=== PATIENT | male | born 1935 | race Caucasian/White ===

== ENCOUNTER 2019-07-12 23:44 | Inpatient (IN) | payer MEDICARE, BC ==
[2019-07-13 00:43] LABS: #Eosinphils 0.2 thou/uL (0.0-0.7); #Lymphocytes 2.9 thou/uL (1.20-3.40); #Monocytes 1.6 thou/uL (0.11-0.59); #Neutrophils 11.5 thou/uL (1.40-6.50); %Basophils 0.3 % (0.0-1.0); %Lymphocytes 17.7 % (21.0-51.0); %Monocytes 9.9 % (0.0-10.0); Mean Corpuscular HGB CONC 31.9 g/dL (32.0-36.0); Mean Corpuscular Hemoglobin 26.9 pg (27.0-31.0); Mean Corpuscular Volume 84.3 fL (78.0-98.0); Mean Platelet Volume 6.9 fL (7.4-10.4); Platelet Count 377 thou/uL (130-400); RBC Distribution Width 15.2 % (11.5-14.5); Red Blood Cell (RBC) Count 2.98 mill/uL (4.70-6.10); White Blood Cell (WBC) Count 16.2 thou/uL (4.8-10.8)
[2019-07-13] MEDS ORDERED: Sodium Chloride 0.9% (PF) 10 ML VIAL FS PRN ×2 (03:05→05:26)
[2019-07-13] MEDS ORDERED: Dextrose 5 % And 0.9 % NaCl 1,000 ML IV SCH (03:15)
[2019-07-13] MEDS ORDERED: hydrALAZINE 20 MG/ML VIAL SLOW IVP PRN (05:15)
[2019-07-13] MEDS ORDERED: Ondansetron ODT 4 MG TAB PO PRN (05:15)
[2019-07-13] MEDS ORDERED: Ondansetron PF 4 MG/2 ML Vial IVP PRN (05:15)
[2019-07-13] MEDS: Sodium Chloride 0.9% 1,000 ML IV SCH ×2 (06:13→19:58)
[2019-07-13] MEDS ORDERED: FLU VACC TS2019-20(65YR UP)/PF 180 MCG/0.5 ML SYRINGE IM ONE (06:15)
[2019-07-13] MEDS ORDERED: Prevnar 13-Val Conj/PF 0.5 ML SYRINGE IM ONE (06:15)
--- NOTE | 2019-07-13 06:41 | HP ---
PRIMARY CARE PROVIDER: Dr. Yoav Moyer. CHIEF COMPLAINT: Blood per rectum. HISTORY OF PRESENT ILLNESS: This is an 84-year-old male, who presents to [facility] Emergency Department in transfer from [facility] in [place], [place], where the patient initially presented for bright red blood per rectum. The patient apparently had two episodes of passing bright red blood with associated hypotension. History is obtained after discussions with the emergency room attending as well as review of the electronic medical record from [facility] in [place], [place], in addition to partial history from the patient. Overall, the patient is a poor historian and unable to provide a coherent history. The patient was apparently noted with an initial hemoglobin in the 7.5 range, typed and crossed for 1 unit of packed red blood cells, transfused prior to evaluation at [facility]. The patient received an additional unit of packed red blood cells after arrival to the emergency room. The patient also received aggressive IV fluid hydration in addition to IV Protonix 80 mg x1 dose. No reported history of chronic anticoagulation or chronic aspirin therapy. The patient did undergo CT imaging of the abdomen and pelvis showing questionable soft tissue mass at the splenic flexure concerning for tumor. PAST MEDICAL HISTORY: 1. Hypertension. 2. Gastroesophageal reflux disease. 3. Gout. 4. Hyperlipidemia. 5. History of Ashley-Palmer syndrome. 6. Osteoarthritis. 7. Remote history of pneumonia. 8. CVA with residual left hemiparesis. PAST SURGICAL HISTORY: 1. Status post cataract extraction. 2. Status post EGD x2. 3. Status post inguinal hernia repair on the right. CURRENT MEDICATIONS: 1. Donepezil 10 mg p.o. nightly. 2. Lisinopril/hydrochlorothiazide 10/12.5 mg 1 tablet p.o. daily. 3. Ferrous sulfate 325 mg p.o. b.i.d. 4. Protonix 40 mg p.o. daily. 5. Simvastatin 40 mg p.o. daily. ALLERGIES: AMOXICILLIN AND BACTRIM. FAMILY HISTORY: Positive for diabetes in the patient's sister and brother. Positive for coronary artery disease in the patient's brother. SOCIAL HISTORY: The patient resides in [place], [place]. Former tobacco use, none currently. No alcohol or illicit drug use. Lives with his . REVIEW OF SYSTEMS: Unobtainable due to patient's advanced dementia. PHYSICAL EXAMINATION: VITAL SIGNS: Currently, blood pressure 98/57, pulse 98, respiratory rate is 20, temperature 98.5 degrees Fahrenheit, and O2 saturation 100% on room air. GENERAL APPEARANCE: This is an 84-year-old male, alert, responsive, in no acute distress. HEENT: Pupils are equal, round, reactive to light and accommodation. Extraocular muscles are intact. No scleral icterus. No conjunctival injection. Nares patent. OP is clear. Teeth in fair repair. NECK: Supple. No cervical adenopathy. No thyromegaly. No carotid bruits. No JVD appreciated. Cervical spine with full active and passive range of motion. No meningeal signs noted. CHEST: Lungs are clear to auscultation bilaterally. CARDIOVASCULAR: S1, S2 with tachycardia. ABDOMEN: Rounded, soft, nontender, and nondistended. Bowel sounds are positive in all 4 quadrants. No hepatosplenomegaly. No abdominal bruits. No rebound or guarding appreciated. EXTREMITIES: Warm and dry with fair turgor. No clubbing, cyanosis, or asymmetric edema appreciated. Pulses palpable distally at the dorsalis pedis, posterior tibial, and popliteal arteries bilaterally. Capillary refill less than 2 seconds. NEUROLOGIC: Left hemiparesis with limited movement voluntarily. Positive dysarthria. Alert and oriented x1. PERTINENT LABORATORY AND X-RAY FINDINGS: Sodium is 136, potassium 4.9, chloride 102, CO2 of 21, BUN and creatinine unavailable. CBC showed a white blood cell count of 14.9, hemoglobin 7.5, hematocrit 24, platelet count 394. CT of the abdomen and pelvis dated 07/12/2019, showed hiatal hernia with prostatomegaly. Focal area of concentric soft tissue thickening involving the splenic flexure. EKG dated 07/12/2019, by my interpretation shows sinus rhythm with heart rates in the 80s. Normal R-wave progression noted in the precordial leads. Normal axis. No acute ST-T wave changes appreciated. ASSESSMENT AND PLAN: 1. Lower gastrointestinal bleed. The patient will be admitted to the Critical Care Unit. We will continue IV fluid hydration with normal saline at 100 mL/h. Consult GI Service in the a.m. for any further recommendations and potential endoscopy. Avoid anticoagulation and NSAIDs. Serial H and H monitoring. 2. Symptomatic anemia secondary to #1. Status post 2 units of packed red blood cells. Continue monitoring, serial H and H. GI consult pending for potential endoscopy. Continue Protonix 40 mg IV b.i.d. 3. Hypotension. Suspect secondarily to dehydration and acute blood loss. We will continue IV fluid hydration. Serial H and H monitoring and transfuse as clinically necessary. Hold all blood pressure medications. 4. Dementia. Appears advanced. Continue supportive management. We will need discussions with family regarding ongoing goals of care and safety of returning home. 5. Prophylaxis. SCDs while in bed. Protonix 40 mg IV b.i.d. PT and OT evaluation for functional assessment. CODE STATUS: Full. Surrogate medical decision maker is the patient's spouse. Job ID: [id number]
[2019-07-13 06:52] LABS: Band 2 % (5-11); Hemoglobin 7.9 g/dL (14.0-18.0); Hypochromia SLIGHT = 6-15 cells (100X) (0-5/hpf); Lymphocytes 5 % (21-51); MDiff Complete? YES; Mean Corpuscular HGB CONC 32.1 g/dL (32.0-36.0); Mean Corpuscular Hemoglobin 26.7 pg (27.0-31.0); Mean Corpuscular Volume 83.1 fL (78.0-98.0); Mean Platelet Volume 6.8 fL (7.4-10.4); Monocytes 6 % (0-10); Neutrophil 87 % (42-75); Platelet Count 338 thou/uL (130-400); Platelet Morphology Comment Appears Adequate; Red Blood Cell (RBC) Count 2.97 mill/uL (4.70-6.10); White Blood Cell (WBC) Count 18.9 thou/uL (4.8-10.8)
[2019-07-13 06:58] LABS: Anion Gap 11 mmol/L (10-20); BUN (Urea Nitrogen) 39 mg/dL (8.4-25.7); Calc. Creatinine Clearance 49 mL/min (70-130); Calcium 7.6 mg/dL (7.8-10.44); Carbon Dioxide 19 mmol/L (23-31); Chloride 111 mmol/L (98-107); Estimated GFR-MDRD 61; Glucose 218 mg/dL (83-110); Potassium 4.2 mmol/L (3.5-5.1); Sodium 137 mmol/L (136-145)
[2019-07-13] MEDS: Pantoprazole 40 MG VIAL IVP SCH ×2 (08:12→21:05)
[2019-07-13] MEDS ORDERED: Pantoprazole 40 MG VIAL IVP SCH (09:00)
--- NOTE | 2019-07-13 10:32 | CON ---
DATE OF CONSULTATION: 07/13/2019 CONSULTING PHYSICIAN: Katerineist . REASON FOR CONSULTATION: ICU admission. HISTORY OF PRESENT ILLNESS: The patient is an 84-year-old male who came in the hospital with bright red blood per rectum and hypotension. He has been appropriately fluid resuscitated and transfused. He is currently in the ICU for close monitoring. He cannot give me much in the way of history because of severe dementia. PAST MEDICAL HISTORY: 1. Hypertension. 2. Gastroesophageal reflux. 3. Dementia. 4. Gout. 5. Hyperlipidemia. 6. History of Ashley-Palmer syndrome. 7. Osteoarthritis. 8. Pneumonia. 9. Stroke. PAST SURGICAL HISTORY: 1. Cataract surgery. 2. EGD. 3. Inguinal hernia repair. MEDICATIONS: 1. Donepezil 10 mg daily. 2. Lisinopril/hydrochlorothiazide 10/12.5 one daily. 3. Iron sulfate 325 mg b.i.d. 4. Protonix 40 mg daily. 5. Simvastatin 40 mg daily. ALLERGIES: AMOXICILLIN, BACTRIM. FAMILY MEDICAL HISTORY: Remarkable for coronary artery disease. SOCIAL HISTORY: Formerly smoke. Does not consume alcohol. Lives with his . REVIEW OF SYSTEMS: Cannot be obtained secondary to his dementia. PHYSICAL EXAMINATION: VITAL SIGNS: Temperature 98.3, pulse 109, blood pressure 109/66, respiratory rate 100. He is awake and in no distress. He is sitting up in a chair. HEENT: Unremarkable. NECK: No adenopathy or JVD. CHEST: Clear to auscultation. CARDIAC: S1, S2 regular without murmur. ABDOMEN: Soft, nontender to palpation. EXTREMITIES: No clubbing, cyanosis, or edema. LABORATORY DATA: 1. White blood cell count 18.9, hematocrit 24.6, and platelet count 338. Sodium 137, potassium 4.2, chloride 111, CO2 of 19, BUN 39, creatinine 1.1, glucose 219. ASSESSMENT: 1. Presumed lower gastrointestinal bleeding. 2. Mild prerenal azotemia, likely secondary to gastrointestinal bleeding. PLAN: 1. Continue to monitor his H and H closely. 2. GI has been consulted. 3. The patient scheduled Protonix. 4. Available as needed. Job ID: [id number]
--- NOTE | 2019-07-13 11:51 | CON ---
DATE OF CONSULTATION: REASON FOR CONSULTATION: GI hemorrhage. HISTORY OF PRESENT ILLNESS: History comes from talking with the family and reviewing the chart as he has advanced dementia. Mr. Vieira is an 84-year-old male, who was brought to the hospital in [place] by his family for rectal bleeding yesterday that started yesterday acutely. His notes that prior to that, he was having some low-grade fevers to 101 to 102. Apparently, in February of this year, there was something similar happened, and he was in the hospital at [facility] [place] [facility], but she is not sure what was found. He was mildly tachycardic in [place] and received a unit of blood. He was transferred here and received a unit of blood as well. It was documented in the emergency room in [place] that the blood was very bright red. His hemoglobin on presentation there was 7.5. There was a CAT scan that showed a "focal area of concentric soft tissue thickening involving the splenic flexure". PAST MEDICAL HISTORY: Hypertension, reflux, gout, and hyperlipidemia. He has a history of "prior Ashley-Palmer syndrome", osteoarthritis, remote history of pneumonia, history of CVA with residual left hemiparesis, and history of this bleeding this past year in the summer time, but it is unclear what was done then. He has dementia as well. PAST SURGICAL HISTORY: Cataract extraction, prior EGDs, previous inguinal hernia repair. The and the daughters are unsure if he has had a previous colonoscopy. MEDICATIONS: Medications at home: 1. Aricept. 2. Ferrous sulfate. 3. Lisinopril. 4. Pantoprazole. 5. Simvastatin. Medications here: 1. Tylenol. 2. Apresoline. 3. Zofran. 4. Protonix. 5. Normal saline 100 an hour. ALLERGIES: 1. AMOXICILLIN. 2. BACTRIM. FAMILY HISTORY: Noncontributory. SOCIAL HISTORY: The patient does not smoke, drink, or use drugs. Lives with his family. REVIEW OF SYSTEMS: Unable to obtain as the patient has advanced dementia. PHYSICAL EXAMINATION: VITAL SIGNS: Blood pressure 128/66 with a pulse of 116, temperature 98. GENERAL: He is pale. He seems comfortable, but does not communicate. HEENT: His oropharynx, no lesions. NECK: Supple. No adenopathy. LUNGS: Clear. HEART: Regular rate and rhythm without clicks or murmurs. ABDOMEN: Soft. It is nontender. There is no rebound. There is no guarding. There are no bowel sounds. RECTAL: Reveals maroon to red blood, but no clot in the rectal vault. There is no melena present. LABORATORY DATA: Admission labs as documented in the HPI: His hemoglobin was 8 at midnight here. He was given a unit of blood. His hemoglobin is 7.9 at 0620 hours, platelet count 338. White count 18.9; 16.2 on 07/13. BMP was noted for BUN of 39, creatinine of 1.14, chloride 111, bicarb 19, sodium 137, potassium 4.2. ASSESSMENT: 1. Gastrointestinal hemorrhage, likely lower, diverticular would be high on the list of differential diagnosis. There is a CAT scan that shows questionable circumferential soft tissue thickening in the splenic flexure region. It could be ischemic. It could be ulcer. It could be malignancy. Malignancy usually does not bleed like this. The patient does have a remote history of Ashley-Palmer tear, but there are no signs of upper gastrointestinal bleeding or hematemesis at this time. 2. Acute hemorrhage. RECOMMENDATIONS: 1. Resuscitate with transfusion. 2. Stat tagged red blood cell scan. 3. I talked with the patient's family regarding DNR status, and they stated he is going to be DNR. Job ID: [id number]
--- NOTE | 2019-07-13 15:00 | PDOC.HOSPP ---
- Subjective Encounter Date: 07/13/19 Encounter Time: 10:50 Subjective: Sick looking. - Objective Vital Signs & Weight: Vital Signs (12 hours) Temp Pulse Pulse BP BP Pulse Ox Pulse Ox 07/13/19 14:32 98.7 F 07/13/19 13:00 98.7 F 07/13/19 12:00 98.5 F 07/13/19 11:00 98.6 F 07/13/19 09:25 111 H 119 H 124/77 136/76 96 07/13/19 07:42 100 07/13/19 07:00 98.3 F 07/13/19 04:00 97.6 F 07/13/19 03:08 100 07/13/19 03:00 98.2 F Pulse Ox 07/13/19 14:32 07/13/19 13:00 07/13/19 12:00 07/13/19 11:00 07/13/19 09:25 98 07/13/19 07:42 07/13/19 07:00 07/13/19 04:00 07/13/19 03:08 07/13/19 03:00 Weight Weight 159 lb 2.78 oz Most Recent Monitor Data Heart Rate from ECG 95 NIBP 87/61 NIBP BP-Mean 69 Respiration from ECG 15 SpO2 100 I&O: 07/12/19 07/13/19 07/14/19 06:59 06:59 06:59 Intake Total 360 625 Output Total 655 935 Balance -295 -310 Result Diagrams: 07/13/19 06:20 07/13/19 06:20 Hospitalist ROS - Medication Medications: Active Medications Generic Name Dose Route Start Last Admin Trade Name Freq PRN Reason Stop Dose Admin Sodium Chloride 1,000 mls @ 100 mls/hr 07/13/19 05:15 07/13/19 06:13 Normal Saline 0.9% IV 1,000 mls .Q10H GEORGETTE Administration Pantoprazole Sodium 40 mg 07/13/19 09:00 07/13/19 08:12 Protonix IVP 40 mg Q12HR GEORGETTE Administration - Exam General Appearance: ill appearing. negative: awake alert Neck: no JVD Heart: RRR Respiratory: CTAB Gastrointestinal: soft Extremities: no edema Neurological: no weakness Hosp A/P (1) GI bleeding Code(s): K92.2 - GASTROINTESTINAL HEMORRHAGE, UNSPECIFIED Status: Acute (2) Acute blood loss anemia Code(s): D62 - ACUTE POSTHEMORRHAGIC ANEMIA Status: Acute (3) Acute blood loss anemia Code(s): D62 - ACUTE POSTHEMORRHAGIC ANEMIA Status: Acute (4) Dementia Code(s): F03.90 - UNSPECIFIED DEMENTIA WITHOUT BEHAVIORAL DISTURBANCE Status: Acute (5) Hypotension Status: Acute - Plan Seen by surgery.. GI bleeding most likely from diverticular diseas.. For blood trasfusion.. Currently DNR.
--- NOTE | 2019-07-13 17:54 | NM ---
Nuclear medicine GI bleeding scan: DATE: 07/13/2019 HISTORY: 84-year-old male with acute GI bleeding. TECHNIQUE: IV injection of 29.6 mCi of technetium 99m-tagged erythrocytes. Anterior dynamic scintigraphy of abdomen and pelvis for 93 minutes. FINDINGS: There is no evidence of active GI bleeding. IMPRESSION: Negative.
[2019-07-14 00:35] LABS: Hemoglobin 8.1 g/dL (14.0-18.0); Platelet Count 269 thou/uL (130-400)
[2019-07-14 04:09] LABS: Band 1 % (5-11); Hemoglobin 8.3 g/dL (14.0-18.0); Lymphocytes 9 % (21-51); MDiff Complete? YES; Mean Corpuscular HGB CONC 33.9 g/dL (32.0-36.0); Mean Corpuscular Hemoglobin 28.6 pg (27.0-31.0); Mean Corpuscular Volume 84.5 fL (78.0-98.0); Monocytes 7 % (0-10); Neutrophil 83 % (42-75); Platelet Count 275 thou/uL (130-400); Platelet Morphology Comment Appears Adequate; Red Blood Cell (RBC) Count 2.89 mill/uL (4.70-6.10); White Blood Cell (WBC) Count 14.5 thou/uL (4.8-10.8)
[2019-07-14 04:20] LABS: Anion Gap 10 mmol/L (10-20); BUN (Urea Nitrogen) 35 mg/dL (8.4-25.7); Calc. Creatinine Clearance 53 mL/min (70-130); Calcium 7.9 mg/dL (7.8-10.44); Carbon Dioxide 20 mmol/L (23-31); Chloride 116 mmol/L (98-107); Estimated GFR-MDRD 67; Glucose 137 mg/dL (83-110); Sodium 142 mmol/L (136-145)
[2019-07-14] MEDS: Sodium Chloride 0.9% 1,000 ML IV SCH ×3 (05:37→16:18)
[2019-07-14] MEDS: Pantoprazole 40 MG VIAL IVP SCH ×2 (08:20→19:43)
--- NOTE | 2019-07-14 11:01 | PRG ---
DATE OF SERVICE: 07/14/2019 SUBJECTIVE: Mr. Vieira had no bleeding overnight. His tagged red blood cell scan was negative yesterday afternoon. He has received a total of 4 units of blood now. OBJECTIVE: VITAL SIGNS: Temperature is 98.6, pulse 84, and blood pressure 112/70. GENERAL: He is demented. He seems pleasant and not in any distress. LABORATORY DATA: White count 14.5, hemoglobin 8.3, and platelet count 275. Sodium 142, potassium 4, and BUN and creatinine 35 and 1.05. ASSESSMENT: Gastrointestinal bleed of unclear etiology. The character of it would indicate probably diverticular bleeding. He did have a CAT scan at outside facility, it was concerning for a circumferential lesion in the splenic flexure. He has no tenderness in this area with his elevated white count. It is always possible that this is an area of ischemia from bleeding hypotension. He has had previous esophagogastroduodenoscopies several years ago with a history of possibly upper gastrointestinal bleed at that time or Ashley-Palmer tear, but the bleeding this time has not been characteristic of that. PLAN: He otherwise seems stable. We will place him on a liquid diet and decrease his IV fluids and plan for EGD and colonoscopy tomorrow as long as the family is agreeable to that. In light of his advanced age and dementia, if they want to continue with more palliative care, we can do that, but based on our conversation yesterday and I think they are ready to move to palliative care. I did try to call the patient's daughter today, but the phone is busy. Job ID: [id number]
--- NOTE | 2019-07-14 11:12 | PDOC.HOSPP ---
- Subjective Encounter Date: 07/14/19 Encounter Time: 09:30 Subjective: Comfortable. Sitting up on bed edge with PT. Expresses no complaint. - Objective Vital Signs & Weight: Vital Signs (12 hours) Temp Pulse Ox 07/14/19 07:49 100 07/14/19 07:45 100 07/14/19 07:00 98.6 F 07/14/19 04:00 98.7 F 07/14/19 03:55 95 07/14/19 00:00 98.7 F Weight Weight 163 lb 12.855 oz Most Recent Monitor Data Heart Rate from ECG 89 NIBP 149/72 NIBP BP-Mean 97 Respiration from ECG 19 SpO2 100 I&O: 07/13/19 07/14/19 07/15/19 06:59 06:59 06:59 Intake Total 360 3042 Output Total 655 2805 655 Balance -295 237 -655 Result Diagrams: 07/14/19 03:14 07/14/19 03:14 Hospitalist ROS - Medication Medications: Active Medications Generic Name Dose Route Start Last Admin Trade Name Freq PRN Reason Stop Dose Admin Pantoprazole Sodium 40 mg 07/13/19 09:00 07/14/19 08:20 Protonix IVP 40 mg Q12HR GEORGETTE Administration Sodium Chloride 10 ml 07/13/19 05:26 07/13/19 21:05 Normal Saline Pf FS 10 ml PRN PRN Administration RECONSTITUTION - Exam Neck: no JVD Heart: RRR Respiratory: CTAB Gastrointestinal: soft Extremities: no edema Neurological: no weakness Hosp A/P (1) GI bleeding Code(s): K92.2 - GASTROINTESTINAL HEMORRHAGE, UNSPECIFIED Status: Acute (2) Acute blood loss anemia Code(s): D62 - ACUTE POSTHEMORRHAGIC ANEMIA Status: Acute Plan: s/p transfusion.. F/U hb/hct (3) Dementia Code(s): F03.90 - UNSPECIFIED DEMENTIA WITHOUT BEHAVIORAL DISTURBANCE Status: Acute (4) Hypotension Status: Acute Plan: resolved.. - Plan GI bleeding most likely from diverticular diseas.. f/u hb/hct... Overall condition is better Currently DNR.
[2019-07-14] MEDS ORDERED: GoLYTELY 4,000 ml Bottle PO SCH (15:00)
[2019-07-14] MEDS: Acetaminophen 500 MG TAB PO PRN (16:09)
[2019-07-15 05:45] LABS: #Eosinphils 0.1 thou/uL (0.0-0.7); #Lymphocytes 1.4 thou/uL (1.20-3.40); #Monocytes 1.4 thou/uL (0.11-0.59); #Neutrophils 12.6 thou/uL (1.40-6.50); %Basophils 0.2 % (0.0-1.0); %Eosinophils 0.6 % (0.0-10.0); %Monocytes 8.8 % (0.0-10.0); %Neutrophils 81.3 % (42.0-75.0); Hemoglobin 7.6 g/dL (14.0-18.0); Mean Corpuscular Hemoglobin 28.6 pg (27.0-31.0); Mean Corpuscular Volume 84.1 fL (78.0-98.0); Mean Platelet Volume 6.8 fL (7.4-10.4); Platelet Count 255 thou/uL (130-400); RBC Distribution Width 15.2 % (11.5-14.5); Red Blood Cell (RBC) Count 2.66 mill/uL (4.70-6.10); White Blood Cell (WBC) Count 15.5 thou/uL (4.8-10.8)
[2019-07-15] MEDS: Sodium Chloride 0.9% 1,000 ML IV SCH (05:50)
[2019-07-15 06:06] LABS: Anion Gap 9 mmol/L (10-20); BUN (Urea Nitrogen) 18 mg/dL (8.4-25.7); Calc. Creatinine Clearance 61 mL/min (70-130); Calcium 8.2 mg/dL (7.8-10.44); Carbon Dioxide 26 mmol/L (23-31); Chloride 113 mmol/L (98-107); Estimated GFR-MDRD 76; Glucose 117 mg/dL (83-110); Potassium 3.6 mmol/L (3.5-5.1); Sodium 144 mmol/L (136-145)
[2019-07-15] MEDS: Pantoprazole 40 MG VIAL IVP SCH ×2 (08:03→20:13)
[2019-07-15] MEDS ORDERED: PROPOFOL 200 MG/20 ML VIAL ONE (10:56)
--- NOTE | 2019-07-15 13:20 | PRG ---
DATE OF SERVICE: 07/15/2019 SUBJECTIVE: Nurse reports Mr. Vieira finishes prep, has only had 2 bowel movements, it is still dark. PHYSICAL EXAMINATION: VITAL SIGNS: Temperature is 99.6, pulse 87, and blood pressure 148/73. GENERAL: He is alert and oriented x3. ABDOMEN: Slightly protuberant. RECTAL: Examination reveals some coffee-ground material in the rectal vault. LABORATORY DATA: Hemoglobin 7.6, white count 15.5. Sodium 144, potassium 3.6, BUN and creatinine 11 and 0.95. ASSESSMENT: Gastrointestinal bleed. He presented with what appeared to be diverticular bleeding. Tagged scan is negative. His hemoglobin has relatively been stable in the past couple of days, now he is just having old dark stool, looked coffee-ground like stool pass. It is unclear if this is related to his iron supplementation or his active bleeding. His hemoglobin seems stable and hematocrit stable. We will bring him downstairs for an upper and lower endoscopy this afternoon. Job ID: [id number]
--- NOTE | 2019-07-15 17:32 | PDOC.HOSPP ---
- Subjective Encounter Date: 07/15/19 Encounter Time: 17:30 Subjective: alert - Objective Vital Signs & Weight: Vital Signs (12 hours) Temp Pulse Resp BP Pulse Ox 07/15/19 15:30 90 18 145/72 H 97 07/15/19 15:04 83 18 161/77 H 97 07/15/19 14:46 85 18 150/76 H 96 07/15/19 14:20 97.4 F L 86 20 132/66 95 07/15/19 11:06 99.6 F 97 18 148/73 H 94 L 07/15/19 08:30 95 07/15/19 08:05 95 07/15/19 07:59 98.1 F 91 18 128/64 95 Weight Weight 160 lb 0.889 oz Most Recent Monitor Data Heart Rate from ECG 97 NIBP 109/59 NIBP BP-Mean 75 Respiration from ECG 21 SpO2 97 I&O: 07/14/19 07/15/19 07/16/19 06:59 06:59 06:59 Intake Total 3042 4016 Output Total 2805 2275 Balance 237 1741 Result Diagrams: 07/15/19 05:34 07/15/19 05:33 Hospitalist ROS - Medication Medications: Active Medications Generic Name Dose Route Start Last Admin Trade Name Freq PRN Reason Stop Dose Admin Acetaminophen 1,000 mg 07/13/19 05:15 07/14/19 16:09 Tylenol PO 1,000 mg Q6H PRN Administration Mild Pain (1-3) Sodium Chloride 1,000 mls @ 70 mls/hr 07/14/19 10:37 07/15/19 05:50 Normal Saline 0.9% IV 1,000 mls .[id number] GEORGETTE Administration Pantoprazole Sodium 40 mg 07/13/19 09:00 07/15/19 08:03 Protonix IVP 40 mg Q12HR GEORGETTE Administration Sodium Chloride 10 ml 07/13/19 05:26 07/13/19 21:05 Normal Saline Pf FS 10 ml PRN PRN Administration RECONSTITUTION - Exam Neck: no JVD Heart: RRR, no murmur Respiratory: CTAB Gastrointestinal: soft, non-tender, normal bowel sounds Extremities: no edema Hosp A/P (1) Acute blood loss anemia Code(s): D62 - ACUTE POSTHEMORRHAGIC ANEMIA Status: Acute (2) GI bleeding Code(s): K92.2 - GASTROINTESTINAL HEMORRHAGE, UNSPECIFIED Status: Acute Qualifiers: GI bleed type/associated pathology: anorectal hemorrhage Qualified Code(s) : K62.5 - Hemorrhage of anus and rectum (3) Hypotension Status: Resolved (4) Dementia Code(s): F03.90 - UNSPECIFIED DEMENTIA WITHOUT BEHAVIORAL DISTURBANCE Status: Acute - Plan post endoscopy, no rep[orts nurse reports she was told had mass in colon, BX taken discuss with GI and Gen Surg
--- NOTE | 2019-07-16 03:00 | CON ---
DATE OF CONSULTATION: 07/15/2019 CONSULTING PHYSICIAN: Dr. Con Leavitt. REASON FOR CONSULTATION: Gastrointestinal bleed, ulcerated left colon lesion (suspected neoplasm). HISTORY OF PRESENT ILLNESS: Patient is an 84-year-old white male. He was hospitalized here two days ago following evaluation in [place] for bright red blood per rectum. He was noted to be anemic upon arrival. His hemoglobin has ranged between 7.6 and 8.3. Today, he underwent a colonoscopy per Dr. Leavitt. This showed several centimeter segment of ulceration and severe disease within the proximal left colon (probably near the splenic flexure). Multiple biopsies were obtained, but these are still pending. I attempted to visit with the patient this evening, but he was sleepy and perhaps still recovering from his anesthetic from his colonoscopy and he was not able to contribute anything. I will revisit with him tomorrow (Tuesday) and will hopefully have pathology results. I suspect that this area is going to need to be resected, but there is a chance that this is all ischemic ulceration and perhaps he could get by without surgery in light of his advanced age and somewhat frail appearance. Job ID: [id number]
[2019-07-16 06:11] LABS: #Eosinphils 0.1 thou/uL (0.0-0.7); #Lymphocytes 1.5 thou/uL (1.20-3.40); #Monocytes 1.2 thou/uL (0.11-0.59); #Neutrophils 12.7 thou/uL (1.40-6.50); %Eosinophils 0.7 % (0.0-10.0); %Lymphocytes 9.7 % (21.0-51.0); %Monocytes 7.5 % (0.0-10.0); %Neutrophils 82.1 % (42.0-75.0); Hemoglobin 7.2 g/dL (14.0-18.0); Mean Corpuscular HGB CONC 32.8 g/dL (32.0-36.0); Mean Corpuscular Hemoglobin 27.9 pg (27.0-31.0); Mean Platelet Volume 7.1 fL (7.4-10.4); Platelet Count 268 thou/uL (130-400); RBC Distribution Width 15.4 % (11.5-14.5); Red Blood Cell (RBC) Count 2.59 mill/uL (4.70-6.10); White Blood Cell (WBC) Count 15.5 thou/uL (4.8-10.8)
[2019-07-16 06:30] LABS: ALT (SGPT) 14 U/L (8-55); AST (SGOT) 20 U/L (5-34); Albumin 2.2 g/dL (3.4-4.8); Alkaline Phosphatase 110 U/L (40-110); Anion Gap 8 mmol/L (10-20); BUN (Urea Nitrogen) 11 mg/dL (8.4-25.7); Bilirubin, Total 0.7 mg/dL (0.2-1.2); Calc. Creatinine Clearance 61 mL/min (70-130); Calcium 7.8 mg/dL (7.8-10.44); Carbon Dioxide 26 mmol/L (23-31); Chloride 110 mmol/L (98-107); Estimated GFR-MDRD 78; Globulin 2.9 g/dL (2.4-3.5); Glucose 132 mg/dL (83-110); Potassium 3.4 mmol/L (3.5-5.1); Protein, Total 5.1 g/dL (5.8-8.1); Sodium 141 mmol/L (136-145)
[2019-07-16] MEDS: Pantoprazole 40 MG VIAL IVP SCH ×2 (08:29→20:14)
--- NOTE | 2019-07-16 08:48 | OP ---
DATE OF PROCEDURE: 07/15/2019 PREPROCEDURE DIAGNOSES: 1. Severe iron deficiency anemia. 2. Lower gastrointestinal bleed. 3. Dementia. 4. Prior history of gastrointestinal bleed [place] PROCEDURES PERFORMED: Esophagogastroduodenoscopy and diagnostic colonoscopy with biopsy. POSTPROCEDURE DIAGNOSES: 1. Normal esophagogastroduodenoscopy. 2. 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 This could be either malignancy or cancer. Multiple biopsies obtained, this will likely need surgical resection of the patient, family opts to go that direction. Otherwise, the treatment would be palliative care. ANESTHESIA: TIVA. PROCEDURE IN DETAIL: After the patient was informed of the risks, benefits, and possible complications of endoscopy including perforation, bleeding, reaction to medication, and aspiration, informed consent was obtained. The patient was brought to endoscopy suite, where he was sedated in gradual fashion. Once he was comfortable, a bite-block was placed inside the orifice. The endoscope was advanced through the esophagus, stomach, second and third portions of the duodenum, slowly removed. There was good visualization of the mucosa. There was no mass, lesions, or AV malformations noted in the stomach. There was no bleeding lesions noted. Forward and retroflexed views were normal in stomach. The esophagus was overall normal. The scope was removed. The patient was turned to the room. The endoscope was advanced to the anal canal through the colon. The sigmoid colon is very tortuous. Somewhat of the left side of the colon we encountered, narrowed area was strictured proximal to that, there was circumferential ulceration and nodularity. Mucosa extending about 10 cm. Multiple biopsies were taken through this area in both necrotic areas and at the margins both distally and proximally. The scope was advanced to the cecum. There was a small diminutive polyp in the cecum and then, it was slowly removed. The strictured area measured about 40 to 50 cm from the anorectal verge. It spanned about 5 to 10 cm. The scope was then brought back to the remainder of the colon, which was normal except for 2 small 5 to 10 mm polyps in the rectum. These were not removed. Retroflexed views were normal. Scope was removed. The patient tolerated the procedure well. There were no complications. Job ID: [id number]
--- NOTE | 2019-07-16 11:38 | PDOC.HOSPP ---
- Subjective Encounter Date: 07/16/19 Encounter Time: 11:35 Subjective: easily aroused, pleasantly confused - Objective Vital Signs & Weight: Vital Signs (12 hours) Temp Pulse Resp BP Pulse Ox 07/16/19 07:32 96 07/16/19 07:30 97.5 F L 104 H 16 130/69 96 Weight Weight 160 lb 0.889 oz Most Recent Monitor Data Heart Rate from ECG 97 NIBP 109/59 NIBP BP-Mean 75 Respiration from ECG 21 SpO2 97 I&O: 07/15/19 07/16/19 07/17/19 06:59 06:59 06:59 Intake Total 4016 1670 Output Total 2275 1300 Balance 1741 370 Result Diagrams: 07/16/19 05:49 07/16/19 05:49 Hospitalist ROS - Medication Medications: Active Medications Generic Name Dose Route Start Last Admin Trade Name Freq PRN Reason Stop Dose Admin Acetaminophen 1,000 mg 07/13/19 05:15 07/14/19 16:09 Tylenol PO 1,000 mg Q6H PRN Administration Mild Pain (1-3) Pantoprazole Sodium 40 mg 07/13/19 09:00 07/16/19 08:29 Protonix IVP 40 mg Q12HR GEORGETTE Administration Sodium Chloride 10 ml 07/13/19 05:26 07/13/19 21:05 Normal Saline Pf FS 10 ml PRN PRN Administration RECONSTITUTION Sodium Chloride 10 ml 07/14/19 10:32 07/16/19 08:29 Flush - Normal Saline IVF 10 ml PRN PRN Administration Saline Flush - Exam Neck: no JVD Heart: RRR Respiratory: CTAB, no wheezes Gastrointestinal: soft, non-distended, normal bowel sounds Extremities: no edema Hosp A/P (1) Acute blood loss anemia Code(s): D62 - ACUTE POSTHEMORRHAGIC ANEMIA Status: Acute (2) GI bleeding Code(s): K92.2 - GASTROINTESTINAL HEMORRHAGE, UNSPECIFIED Status: Acute Qualifiers: GI bleed type/associated pathology: anorectal hemorrhage Qualified Code(s) : K62.5 - Hemorrhage of anus and rectum (3) Hypotension Status: Resolved (4) Dementia Code(s): F03.90 - UNSPECIFIED DEMENTIA WITHOUT BEHAVIORAL DISTURBANCE Status: Acute Qualifiers: Dementia type: unspecified type Dementia behavioral disturbance: without behavioral disturbance Qualified Code(s): F03.90 - Unspecified dementia without behavioral disturbance - Plan POSt endoscope, path pending cont to monitorH&H, transfuse if <7 gen surg in consult
[2019-07-16] MEDS: Acetaminophen 500 MG TAB PO PRN (15:52)
[2019-07-16] MEDS: Neomycin 500 mg Tablet PO SCH ×2 (16:44→20:13)
[2019-07-16] MEDS: Erythromycin Base 250 MG TAB PO SCH ×2 (16:44→20:14)
--- NOTE | 2019-07-16 22:39 | CON ---
DATE OF CONSULTATION: 07/16/2019 CONSULTING PHYSICIAN: Con Leavitt MD REASON FOR CONSULTATION: Gastrointestinal hemorrhage with left colon mass/abnormality. HISTORY OF PRESENT ILLNESS: The patient is an 84-year-old white male. He was initially seen by myself yesterday following his colonoscopy and he was confused and unhelpful. I was hoping that if that was a manifestation of his anesthetic, that would wear off. Unfortunately, when I saw him today, he is just as confused. He does not seem to answer any questions appropriately and is almost unintelligible when he tries to speak. He does seem to be in a good mood and denies pain. I did speak with his , Chata, by phone. I confirmed most of the information that was available within the medical record. He is an 84-year-old male, who presented to the hospital on July 13 with blood per rectum. He had presented to the emergency room following a few episodes of bright red blood per rectum with hypotension. His hemoglobin at that time (in [place]) was 7.5, and he was initially transfused with 1 unit packed red blood cells. CT scan revealed what appeared to be a soft tissue mass concerning for tumor at the splenic flexure. He was transferred to this facility, where he was admitted by the hospitalist service. He was subsequently seen in consultation by Dr. Leavitt. The patient, secondary to his confusion, was completely unhelpful in regard to his recent or past medical history. The patient underwent a tagged red blood cell scan that was negative. His hemoglobin level here is varied from 7.2 to 8.3. He also has been further transfused with a total of 3 units of packed red blood cells. He eventually underwent upper and lower GI endoscopy per Dr. Leavitt yesterday. EGD was unremarkable. Colonoscopy revealed an area of nodular abnormality over almost a 10 cm segment at the level of the splenic flexure that was concerning for malignancy. This was biopsied and pathology results are still pending. I was consulted following that colonoscopy. The patient's hemoglobin dropped from yesterday to today from 7.6 down to 7.2. A CEA level was obtained today, which is normal at 2.68. PAST MEDICAL HISTORY: Significant for; 1. Advanced dementia. 2. Hypertension. 3. Gastroesophageal reflux disease. 4. Gout. 5. Hyperlipidemia. 6. Questionable history of a Ashley-Palmer tear. 7. Osteoarthritis. 8. History of cerebrovascular accident with residual left hemiparesis. PAST SURGICAL HISTORY: 1. Cataract extraction. 2. Prior endoscopies. 3. Inguinal hernia repair. MEDICATIONS: At home include; 1. Aricept. 2. Ferrous sulfate. 3. Lisinopril. 4. Pantoprazole. 5. Simvastatin. ALLERGIES: TO AMOXICILLIN AND BACTRIM. PERSONAL AND SOCIAL HISTORY: He lives in [place], [place] with his . He formerly smoked. He does not drink alcohol. REVIEW OF SYSTEMS: Otherwise unremarkable. FAMILY HISTORY: Noncontributory. PHYSICAL EXAMINATION: VITAL SIGNS: His maximum temperature on July 14 was 101.1. Afebrile currently, although he had a temperature of 100.6 earlier today. Pulse is typically in the 80s. Blood pressure is essentially normal with occasional episodes of mild hypertension. HEAD, EYES, EARS, NOSE, AND THROAT: Unremarkable. NECK: Supple. LUNGS: Clear to auscultation. CARDIAC: Regular rate and rhythm. ABDOMEN: Soft, nontender, and nondistended. EXTREMITIES: Unremarkable. LABORATORY DATA: Labs are as referenced above. ASSESSMENT: The patient with severe anemia following 4 units of transfusion. His biopsy results from his colonoscopy are still pending. If these reveal a malignancy, then I would recommend a laparoscopic left hemicolectomy if for no other reason than to stop the bleeding from the cancer. If this is negative and this lesion appears to be consistent with ischemic colitis, it may be worthwhile to attempt to treat him with a course of conservative management with antibiotics and see if the colitis will resolve. If he continues to bleed, requiring further transfusion, he may end up requiring a left hemicolectomy even if this is not a malignancy. I discussed this with his on the phone. The patient has tentatively been scheduled for surgery for tomorrow. He is being maintained on a liquid diet for now and is being given oral antibiotic bowel prep. If it is not a malignancy, then I will forego surgery for tomorrow, but understands that he still may require at some point in the near or distant future. Job ID: [id number]
[2019-07-17] MEDS: Neomycin 500 mg Tablet PO SCH (04:31)
[2019-07-17] MEDS: Erythromycin Base 250 MG TAB PO SCH (04:31)
[2019-07-17 06:11] LABS: #Eosinphils 0.2 thou/uL (0.0-0.7); #Lymphocytes 1.4 thou/uL (1.20-3.40); #Neutrophils 11.9 thou/uL (1.40-6.50); %Basophils 0.2 % (0.0-1.0); %Eosinophils 1.5 % (0.0-10.0); %Lymphocytes 9.9 % (21.0-51.0); %Monocytes 6.8 % (0.0-10.0); %Neutrophils 81.6 % (42.0-75.0); Hemoglobin 7.8 g/dL (14.0-18.0); Mean Corpuscular HGB CONC 33.3 g/dL (32.0-36.0); Mean Corpuscular Hemoglobin 28.4 pg (27.0-31.0); Mean Corpuscular Volume 85.3 fL (78.0-98.0); Mean Platelet Volume 6.6 fL (7.4-10.4); Platelet Count 290 thou/uL (130-400); RBC Distribution Width 15.5 % (11.5-14.5); Red Blood Cell (RBC) Count 2.75 mill/uL (4.70-6.10); White Blood Cell (WBC) Count 14.6 thou/uL (4.8-10.8)
[2019-07-17 06:16] LABS: INR-International Normal Ratio 1.3; Prothrombin Time 15.8 SEC (12.0-14.7)
[2019-07-17 06:17] LABS: PTT 33.4 SEC (22.9-36.1)
[2019-07-17 06:27] LABS: ALT (SGPT) 10 U/L (8-55); AST (SGOT) 18 U/L (5-34); Albumin 2.3 g/dL (3.4-4.8); Alkaline Phosphatase 116 U/L (40-110); Anion Gap 10 mmol/L (10-20); BUN (Urea Nitrogen) 10 mg/dL (8.4-25.7); Bilirubin, Total 0.7 mg/dL (0.2-1.2); Calc. Creatinine Clearance 69 mL/min (70-130); Calcium 7.8 mg/dL (7.8-10.44); Carbon Dioxide 26 mmol/L (23-31); Chloride 105 mmol/L (98-107); Estimated GFR-MDRD 90; Glucose 108 mg/dL (83-110); Potassium 3.3 mmol/L (3.5-5.1); Protein, Total 5.3 g/dL (5.8-8.1); Sodium 138 mmol/L (136-145)
[2019-07-17] MEDS: Pantoprazole 40 MG VIAL IVP SCH (09:38)
[2019-07-17] MEDS ORDERED: Fentanyl 100 MCG/2 ML VIAL ONE ×2 (11:02→11:48)
[2019-07-17] MEDS ORDERED: Ketamine 50 MG/ML (10ML VIAL) ONE (11:03)
[2019-07-17] MEDS ORDERED: Lidocaine 1% w/Epinephrine 1:100K 20 ML VIAL ONE (11:14)
[2019-07-17] MEDS ORDERED: Dexamethasone 4 mg/ml Vial ONE (11:17)
[2019-07-17] MEDS ORDERED: Lidocaine 1% (PF) 30 ML VIAL ONE (11:34)
[2019-07-17] MEDS ORDERED: Ketorolac Tromethamine 30 MG/ML VIAL ONE (11:35)
[2019-07-17] MEDS ORDERED: Sodium Chloride 0.9% 100 ML ONE (11:35)
[2019-07-17] MEDS ORDERED: cefOXitin 2 GM VIAL ONE ×2 (11:35→13:26)
[2019-07-17] MEDS ORDERED: SUGAMMADEX SODIUM 500 MG/5 ML VIAL ONE (15:24)
[2019-07-17] MEDS ORDERED: Ondansetron HCl/PF 4 MG/2 ML Vial IVP PRN (15:35)
[2019-07-17] MEDS ORDERED: ePHEDrine/0.9% NaCl/PF SYRINGE 50 mg/10 ml ONE (15:40)
[2019-07-17] MEDS ORDERED: Bupivacaine HCl 0.5%/Epinephrine 1:200,000/PF 30 ml Vial ONE (15:40)
[2019-07-17] MEDS ORDERED: Ondansetron PF 4 MG/2 ML Vial ONE (15:40)
[2019-07-17] MEDS ORDERED: Rocuronium Bromide 10 MG/ML (10ML VIAL) ONE (15:40)
[2019-07-17] MEDS ORDERED: PHENYLEPHRINE-NS 100 MCG/ML 10 ML SYRINGE ONE (15:40)
[2019-07-17] MEDS ORDERED: Dexamethasone 20 MG/5 ML VIAL ONE (15:40)
[2019-07-17] MEDS ORDERED: PROPOFOL 200 MG/20 ML VIAL ONE (15:40)
[2019-07-17] MEDS ORDERED: Esmolol 100 MG/10 ML VIAL ONE (15:40)
[2019-07-17] MEDS ORDERED: Glycopyrrolate 0.2 MG/ML 5 ML SYRINGE ONE (15:40)
[2019-07-17] MEDS ORDERED: Ondansetron PF 4 MG/2 ML Vial IVP PRN (15:45)
[2019-07-17] MEDS ORDERED: Promethazine HCl 25 MG/ML VIAL IM PRN (15:45)
[2019-07-17 16:15] LABS: #Lymphocytes 0.5 thou/uL (1.20-3.40); #Monocytes 0.4 thou/uL (0.11-0.59); #Neutrophils 5.9 thou/uL (1.40-6.50); %Eosinophils 0.4 % (0.0-10.0); %Lymphocytes 7.6 % (21.0-51.0); %Monocytes 5.4 % (0.0-10.0); %Neutrophils 86.6 % (42.0-75.0); Hemoglobin 9.7 g/dL (14.0-18.0); Mean Corpuscular HGB CONC 33.8 g/dL (32.0-36.0); Mean Corpuscular Hemoglobin 28.9 pg (27.0-31.0); Mean Corpuscular Volume 85.6 fL (78.0-98.0); Mean Platelet Volume 6.6 fL (7.4-10.4); Platelet Count 284 thou/uL (130-400); RBC Distribution Width 15.1 % (11.5-14.5); Red Blood Cell (RBC) Count 3.36 mill/uL (4.70-6.10); White Blood Cell (WBC) Count 6.8 thou/uL (4.8-10.8)
--- NOTE | 2019-07-17 16:27 | PDOC.HOSPP ---
- Subjective Encounter Date: 07/17/19 Encounter Time: 16:26 Subjective: post-op, still groggy - Objective Vital Signs & Weight: Vital Signs (12 hours) Temp Pulse Resp BP Pulse Ox 07/17/19 08:06 99.6 F 88 18 145/73 H 94 L 07/17/19 07:40 98 Weight Weight 160 lb 0.889 oz Most Recent Monitor Data Heart Rate from ECG 97 NIBP 109/59 NIBP BP-Mean 75 Respiration from ECG 21 SpO2 97 I&O: 07/16/19 07/17/19 07/18/19 06:59 06:59 06:59 Intake Total 1670 Output Total 1300 850 Balance 370 -850 Result Diagrams: 07/17/19 16:04 07/17/19 05:52 Hospitalist ROS - Medication Medications: Active Medications Generic Name Dose Route Start Last Admin Trade Name Freq PRN Reason Stop Dose Admin Sodium Chloride 10 ml 07/13/19 05:26 07/13/19 21:05 Normal Saline Pf FS 10 ml PRN PRN Administration RECONSTITUTION Sodium Chloride 10 ml 07/14/19 10:32 07/16/19 08:29 Flush - Normal Saline IVF 10 ml PRN PRN Administration Saline Flush - Exam Neck: no JVD Heart: RRR, no murmur Respiratory: CTAB, no wheezes Gastrointestinal: soft, diminished bowl sounds Extremities: no edema Hosp A/P (1) Colon cancer Code(s): C18.9 - MALIGNANT NEOPLASM OF COLON, UNSPECIFIED Status: Acute Qualifiers: Colon location: unspecified part of colon Qualified Code(s): C18.9 - Malignant neoplasm of colon, unspecified (2) Acute blood loss anemia Code(s): D62 - ACUTE POSTHEMORRHAGIC ANEMIA Status: Acute (3) GI bleeding Code(s): K92.2 - GASTROINTESTINAL HEMORRHAGE, UNSPECIFIED Status: Acute Qualifiers: GI bleed type/associated pathology: anorectal hemorrhage Qualified Code(s) : K62.5 - Hemorrhage of anus and rectum (4) Hypotension Status: Resolved (5) Dementia Code(s): F03.90 - UNSPECIFIED DEMENTIA WITHOUT BEHAVIORAL DISTURBANCE Status: Acute Qualifiers: Dementia type: unspecified type Dementia behavioral disturbance: without behavioral disturbance Qualified Code(s): F03.90 - Unspecified dementia without behavioral disturbance - Plan Path- 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
[2019-07-17] MEDS ORDERED: D5 1/2 NS w/20 mEq KCL 1,000 ML ONE (16:50)
[2019-07-17] MEDS: Acetaminophen 1,000 MG in Premix Bag 1 BAG IVPB SCH (18:51)
[2019-07-17] MEDS: D5 1/2 NS w/20 mEq KCL 1,000 ML IV SCH (18:52)
[2019-07-17] MEDS: Ketorolac Tromethamine 30 MG/ML VIAL IVP SCH (18:52)
[2019-07-17] MEDS: Famotidine 20 MG TAB PO SCH (21:35)
[2019-07-17] MEDS: cefOXitin Sodium/Dextrose,Iso 1 GM in Premix Bag 1 BAG IVPB SCH (21:35)
[2019-07-17] MEDS: Famotidine/PF 20 mg/2ml Vial SLOW IVP SCH (21:35)
--- NOTE | 2019-07-17 22:59 | OP ---
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 PROCEDURES PERFORMED: Laparoscopic left hemicolectomy with resection of the splenic flexure, splenic flexure mobilization, excision of invasive disease involving the anterior abdominal wall, gastric wedge resection of an involved segment along the greater curvature. ANESTHESIA: General endotracheal. INDICATIONS: The patient is an 84-year-old white male. He had presented for evaluation of blood per rectum. Colonoscopy revealed a dense segment of disease proximal to splenic flexure. Biopsies of this revealed a poorly differentiated malignancy. The patient has been transfused prior to surgery with 4 units of packed red blood cells. He was taken to the operating room for resection of the malignancy with hopeful curative intent, but at least for palliation in regard to his ongoing blood loss. DESCRIPTION OF PROCEDURE: Informed consent was obtained from his . He was taken to the operating room, where general endotracheal anesthesia was obtained with the patient in supine position. Abdomen was prepped with ChloraPrep and draped in sterile fashion. A tap block had been placed by Anesthesia before surgery. Abdomen was prepped and draped in usual sterile fashion. Local anesthetic was infiltrated using a mixture of lidocaine with epinephrine and Marcaine and a 5 mm right upper quadrant incision was created, through which a Veress needle was passed into the peritoneal cavity. Pneumoperitoneum was established using carbon dioxide up to a pressure of 15 mmHg. A 5 mm trocar port was passed through the same incision. Laparoscopic camera was passed through this port. Under direct vision, I placed 2 additional ports including a 12 mm right lower abdominal port, and 5 mm left lower abdominal port. The patient had obvious inflammation involving the area of the splenic flexure with adhesion to the anterior abdominal wall. This was bluntly mobilized away using graspers and it was recognized that there was a malignancy involving the anterior aspect of the colon that was invasive of the abdominal wall and some malignancy was left on the abdominal wall. This continued to bleed. I resected this segment of the anterior abdominal wall using the LigaSure device and later removed this segment through the Ravin wound retractor. I selected a spot for the extraction site in the left upper quadrant and an 8 cm oblique incision was created. Muscle-splitting was used to gain access into the abdominal cavity and the Ravin wound retractor was placed followed by the GelPort. Attention was turned first to the left colon. The white line of Toldt was incised and the colon was mobilized in a lateral to medial fashion throughout the length of the left colon. The mobilization was continued down approximately chcf through the sigmoid colon. With this fully mobilized, I turned my attention towards the splenic flexure. The malignancy was easily palpable. I mobilized the splenic flexure using the combination of LigaSure dissection and blunt dissection. With further evaluation, I was able to discern that the malignancy was invasive of the greater curvature of the stomach. It could not be from the stomach. I divided the omentum at approximately the mid portion of the transverse colon. I then dissected the gastrocolic ligament to identify the segment of the malignancy that was invasive of the greater curvature. I then divided this segment of the stomach with 2 fires of the echelon 60 mm stapler. The staple line was inspected and found to be intact. I continued to mobilize the omentum towards the area of the splenic flexure until the entire distal colon and splenic flexure were fully mobilized. The splenic flexure was then mobilized up through the Ravin wound retractor and brought extracorporeal. I divided the colon about 10 cm proximal to the malignancy with a single fire of the [place] stapler. I likewise divided approximately the mid left colon with another fire of the [place] stapler. I then took down the intervening mesentery with the LigaSure device and the specimen was tagged for orientation and passed off the field. I then created an isoperistaltic 6 cm anastomosis by firing the stapler one final time in a proximal to distal fashion and closed the colotomy with a final transverse fire of the same stapler. The staple lines were buttressed with interrupted sutures of 3-0 silk. The mesenteric defect was large and was not closed. Laparoscopy was re-established. I thoroughly irrigated the right upper quadrant in the right side of the abdomen to ensure appropriate hemostasis. All area was aspirated. The fascia at the 12 mm port site was closed with 0 Vicryl suture using a GraNee needle. All ports were removed under direct vision. Pneumoperitoneum was carefully evacuated. All laparoscopic equipment was passed off the field. Gowns and gloves were changed. The closing tray instrumentation was utilized. The area was toweled in a sterile fashion. The left upper quadrant wound was closed using #1 PDS in 2 layers. The wound was copiously irrigated. All irrigant was aspirated. The Kenneth's fascia was approximated with interrupted sutures of 3-0 Vicryl and the skin edges with a running subcuticular suture of 4-0 Monocryl. Remaining port sites were closed with 4-0 Monocryl. Dermabond was placed externally. There were no complications. Blood loss was estimated at 100 mL. The patient tolerated the procedure well and was taken to recovery room in stable condition. Job ID: [id number]
[2019-07-18] MEDS: Ketorolac Tromethamine 30 MG/ML VIAL IVP SCH ×5 (00:23→23:11)
[2019-07-18] MEDS: Acetaminophen 1,000 MG in Premix Bag 1 BAG IVPB SCH ×3 (00:23→13:09)
[2019-07-18] MEDS: D5 1/2 NS w/20 mEq KCL 1,000 ML IV SCH ×4 (00:23→23:14)
[2019-07-18] MEDS ORDERED: Ketorolac Tromethamine 30 MG/ML VIAL ONE (05:29)
[2019-07-18] MEDS ORDERED: D5 1/2 NS w/20 mEq KCL 1,000 ML ONE (05:56)
[2019-07-18] MEDS: Famotidine/PF 20 mg/2ml Vial SLOW IVP SCH ×2 (09:00→19:54)
[2019-07-18] MEDS: Enoxaparin Sodium 40 MG/0.4 ML SYRINGE SC SCH (09:00)
[2019-07-18] MEDS: cefOXitin Sodium/Dextrose,Iso 1 GM in Premix Bag 1 BAG IVPB SCH (13:09)
--- NOTE | 2019-07-18 14:04 | PRG ---
DATE OF SERVICE: 07/18/2019 SUBJECTIVE: Mr. Vieira is postoperative day #1 from laparoscopic left hemicolectomy for resection of a large splenic flexure malignancy. I also resected involved segment of anterior abdominal wall and the greater curvature of the stomach. He has been stable overnight and complains of no pain and is appeared comfortable according to his nurse. The patient of course remains almost nonverbal secondary to his dementia. He has required no supplemental pain medication. OBJECTIVE: VITAL SIGNS: He is afebrile. Pulse is 82, blood pressure 149/84. GENERAL: Resting comfortable in bed. He is alert, but does not answer questions appropriately. LUNGS: Clear to auscultation. ABDOMEN: Soft with hypoactive bowel sounds. Laparoscopic incision sites are all healing nicely and minimally tender. LABORATORY DATA: Labs are still pending from today secondary to computer problems. I will check these as soon as possible. ASSESSMENT: The patient is stable following his colon resection. We will continue clear liquids for now. We will remove his James catheter and encourage continued ambulation with physical therapy. He will need placement. I will have Case Management begin working on usp for him when he is ready for discharge. If all goes well, he will hopefully be ready for discharge in 2 days (postoperative day #3). Job ID: [id number]
[2019-07-18] MEDS: Famotidine 20 MG TAB PO SCH ×2 (14:21→19:54)
[2019-07-18 18:27] LABS: Anion Gap 12 mmol/L (10-20); BUN (Urea Nitrogen) 15 mg/dL (8.4-25.7); Calc. Creatinine Clearance 56 mL/min (70-130); Calcium 7.6 mg/dL (7.8-10.44); Carbon Dioxide 22 mmol/L (23-31); Chloride 106 mmol/L (98-107); Estimated GFR-MDRD 71; Glucose 298 mg/dL (83-110); Potassium 4.5 mmol/L (3.5-5.1); Sodium 135 mmol/L (136-145)
[2019-07-18 19:30] LABS: Hemoglobin 9.3 g/dL (14.0-18.0); Mean Corpuscular HGB CONC 33.4 g/dL (32.0-36.0); Mean Corpuscular Hemoglobin 29.3 pg (27.0-31.0); Mean Corpuscular Volume 87.7 fL (78.0-98.0); Mean Platelet Volume 7.5 fL (7.4-10.4); Platelet Count 296 thou/uL (130-400); RBC Distribution Width 15.3 % (11.5-14.5); Red Blood Cell (RBC) Count 3.17 mill/uL (4.70-6.10); White Blood Cell (WBC) Count 12.8 thou/uL (4.8-10.8)
[2019-07-18 19:31] LABS: Band 67 % (5-11); Lymphocytes 4 % (21-51); MDiff Complete? YES; Metamyelocyte 2 % (0-0); Monocytes 4 % (0-10); Neutrophil 23 % (42-75); Reflex for Review?? YES
[2019-07-19] MEDS: Ketorolac Tromethamine 30 MG/ML VIAL IVP SCH ×2 (05:20→11:34)
[2019-07-19 05:34] LABS: Anion Gap 13 mmol/L (10-20); BUN (Urea Nitrogen) 16 mg/dL (8.4-25.7); Calc. Creatinine Clearance 58 mL/min (70-130); Calcium 7.9 mg/dL (7.8-10.44); Carbon Dioxide 18 mmol/L (23-31); Chloride 110 mmol/L (98-107); Estimated GFR-MDRD 70; Glucose 246 mg/dL (83-110); Potassium 4.7 mmol/L (3.5-5.1); Sodium 136 mmol/L (136-145)
[2019-07-19 05:40] LABS: Band 33 % (5-11); Hemoglobin 9.5 g/dL (14.0-18.0); Lymphocytes 3 % (21-51); MDiff Complete? YES; Mean Corpuscular HGB CONC 32.5 g/dL (32.0-36.0); Mean Corpuscular Hemoglobin 28.6 pg (27.0-31.0); Mean Corpuscular Volume 88.1 fL (78.0-98.0); Mean Platelet Volume 7.8 fL (7.4-10.4); Monocytes 3 % (0-10); Neutrophil 60 % (42-75); Platelet Count 240 thou/uL (130-400); Platelet Morphology Comment Appears Adequate; Polychromasia SLIGHT = 2-3 cells (100X) (0-2/hpf); RBC Distribution Width 15.7 % (11.5-14.5); Reactive Lymphocytes 1 % (0-10); Red Blood Cell (RBC) Count 3.31 mill/uL (4.70-6.10); Reflex for Review?? NO; Vacuoles MODERATE; White Blood Cell (WBC) Count 22.3 thou/uL (4.8-10.8)
--- NOTE | 2019-07-19 07:16 | PDOC.GSPN ---
Surgery Progress Note: Subj - Subjective Narrative: Mr. Vieira is an 84-year-old white male who is postoperative day #2 from a laparoscopic left hemicolectomy with resection of the splenic flexure and a segment of the anterior abdominal wall and of the greater curvature of the stomach. He is in a good mood and appears to be doing well. He is almost unintelligible when he attempts to speak, secondary to his advanced dementia. However, he seemed to have said "no pain" and additionally, did not grimace or react when I palpated his abdomen. He has not needed any supplemental pain medications. He has been tolerating clear liquids well, with no vomiting. He has not had a bowel movement yet. Yesterday, his James catheter was removed, and since then, he has been urinating without problems. Surgery Progress Note: Obj - Vital signs Vital signs: Vital Signs - Most Recent Temp Pulse Resp BP Pulse Ox 97.5 F L 88 18 153/80 H 97 07/19/19 03:05 07/19/19 03:05 07/19/19 03:05 07/19/19 03:05 07/19/19 03:05 - Physical Exam General: no distress, no pain Cardiovascular: regular rate and rhythm, no murmur Respiratory: clear to auscultation, normal expansion, normal respiratory effort , breath sounds present Abdomen: soft, non tender, nondistended, other (normoactive bowel sounds) Genitourinary (Male): other (wearing diaper) Psychiatric: other (Mostly unintelligible speech.) Wound: healing well Surgery Progress Note: Results - Labs Result Diagrams: 07/20/19 04:45 07/20/19 04:45 Lab results: Laboratory Results - last 24 hr 07/18/19 07/19/19 07/19/19 05:53 05:09 05:09 WBC 12.8 H 22.3 H RBC 3.17 L 3.31 L Hgb 9.3 L 9.5 L Hct 27.8 L 29.1 L MCV 87.7 88.1 MCH 29.3 28.6 MCHC 33.4 32.5 RDW 15.3 H 15.7 H Plt Count 296 240 MPV 7.5 7.8 Neutrophils % (Manual) 23 L 60 Band Neuts % (Manual) 67 H 33 H Lymphocytes % (Manual) 4 L 3 L Reactive Lymphs % 1 Monocytes % (Manual) 4 3 Metamyelocytes % (Man) 2 H WBC Morphology MODERATE H Plt Morphology Comment Appears Adequate Polychromasia SLIGHT = 2-3 cells Sodium 136 Potassium 4.7 Chloride 110 H Carbon Dioxide 18 L Anion Gap 13 BUN 16 Creatinine 1.02 Estimated GFR (MDRD) 70 Glucose 246 H Calcium 7.9 Surgery Progress Note: A/P - Problem (1) Status post left hemicolectomy Current Visit: Yes Code(s): Z90.49 - ACQUIRED ABSENCE OF OTHER SPECIFIED PARTS OF DIGESTIVE TRACT Status: Acute - Plan Plan: Mr. Vieira is stable post hemicolectomy. He has positive bowel sounds, and his pain appears to be well controlled. His WBC count is elevated; however, his elevated bands have significantly decreased from 67% to 33%, and he is afebrile. Will recheck CBC and continue monitoring him. Continue clear liquids. Encourage ambulation with physical therapy. Case management is working on half-way for when he is discharged. May be ready to for discharge POD #4 or #5. Addendum - Physician - Physician Attestation Date/Time: 07/20/19 3114 I personally performed or re-performed the physical examination and medical decision making. I have verified all student documentation or findings, including history, physical exam and/or medical decision making. Although he is stable for now, his advanced age, severe dementia, and limited mobility all put him at significant increased risk for postoperative problems.
[2019-07-19] MEDS: D5 1/2 NS w/20 mEq KCL 1,000 ML IV SCH (08:40)
[2019-07-19] MEDS: Famotidine/PF 20 mg/2ml Vial SLOW IVP SCH ×2 (08:40→20:22)
[2019-07-19] MEDS: Enoxaparin Sodium 40 MG/0.4 ML SYRINGE SC SCH (08:40)
[2019-07-19] MEDS: Famotidine 20 MG TAB PO SCH ×2 (08:45→20:22)
--- NOTE | 2019-07-19 10:03 | RAD ---
Frontal radiograph chest: 07/19/2019 HISTORY: Elevated white blood cell count, 2 day post op laparoscopic abdominal surgery FINDINGS: There is free intraperitoneal air beneath the right hemidiaphragm, consistent with the leonides ent's postoperative history. There is a patchy opacity in the medial left lung base with mild obscuration of the left hemidiaphragm. No lobar consolidation or pneumothorax. IMPRESSION: Free intraperitoneal air beneath the right hemidiaphragm. Patchy opacity in the left base which could represent atelectasis or developing infectious pneumonitis. This case was discussed with Dr. Rickey walker at 10:00 AM 07/19/2019. Code CR
--- NOTE | 2019-07-19 12:05 | PDOC.HOSPP ---
- Subjective Encounter Date: 07/19/19 Encounter Time: 07:45 Subjective: Patient seen and examined. No new complaints. No overnight events pt is doing well, walking with therapy - Objective Vital Signs & Weight: Vital Signs (12 hours) Temp Pulse Resp BP Pulse Ox 07/19/19 11:23 98.7 F 98 14 175/106 H 94 L 07/19/19 08:40 94 L 07/19/19 07:55 97.1 F L 107 H 18 159/84 H 94 L 07/19/19 03:05 97.5 F L 88 18 153/80 H 97 Weight Weight 166 lb 4 oz Most Recent Monitor Data Heart Rate from ECG 97 NIBP 109/59 NIBP BP-Mean 75 Respiration from ECG 21 SpO2 97 I&O: 07/18/19 07/19/19 07/20/19 06:59 06:59 06:59 Intake Total 1750 Output Total 1000 Balance 750 Result Diagrams: 07/19/19 05:09 07/19/19 05:09 Hospitalist ROS - Review of Systems ROS unobtainable: due to mental status - Medication Medications: Active Medications Generic Name Dose Route Start Last Admin Trade Name Freq PRN Reason Stop Dose Admin Enoxaparin Sodium 40 mg 07/18/19 09:00 07/19/19 08:40 Lovenox SC 40 mg 0900 GEORGETTE Administration Famotidine 20 mg 07/17/19 21:00 07/19/19 08:45 Pepcid PO Not Given Q12HR GEORGETTE Famotidine 20 mg 07/17/19 21:00 07/19/19 08:40 Pepcid SLOW IVP 20 mg Q12HR GEORGETTE Administration Potassium Chloride/Dextrose/Sod Cl 1,000 mls @ 120 mls/hr 07/17/19 15:45 12/31 08:40 D5 1/2 Ns W/20 Meq Kcl IV 1,000 mls .Q8H20M GEORGETTE Administration Ketorolac Tromethamine 30 mg 07/17/19 18:00 07/19/19 11:34 Toradol IVP 07/20/19 18:01 30 mg Q6HR GEORGETTE Administration Sodium Chloride 10 ml 07/13/19 05:26 07/13/19 21:05 Normal Saline Pf FS 10 ml PRN PRN Administration RECONSTITUTION Sodium Chloride 10 ml 07/14/19 10:32 07/16/19 08:29 Flush - Normal Saline IVF 10 ml PRN PRN Administration Saline Flush - Exam General Appearance: NAD, awake alert Eye: PERRL, anicteric sclera ENT: normocephalic atraumatic, no oropharyngeal lesions Neck: supple, symmetric, no JVD, no thyromegaly Heart: RRR, no murmur, no gallops, no rubs Respiratory: CTAB, no wheezes, no rales, no ronchi Gastrointestinal: soft, non-tender, non-distended, normal bowel sounds Gastrointestinal - other findings: surgical site clean Extremities: no cyanosis, no clubbing, no edema Skin: normal turgor, no lesions, no rashes Neurological: no focal deficits Musculoskeletal: normal tone, normal strength Psychiatric: normal affect, normal behavior Hosp A/P (1) GI bleeding Code(s): K92.2 - GASTROINTESTINAL HEMORRHAGE, UNSPECIFIED Status: Acute Qualifiers: GI bleed type/associated pathology: anorectal hemorrhage Qualified Code(s) : K62.5 - Hemorrhage of anus and rectum (2) Acute blood loss anemia Code(s): D62 - ACUTE POSTHEMORRHAGIC ANEMIA Status: Acute (3) Colon cancer Code(s): C18.9 - MALIGNANT NEOPLASM OF COLON, UNSPECIFIED Status: Acute Qualifiers: Colon location: unspecified part of colon Qualified Code(s): C18.9 - Malignant neoplasm of colon, unspecified (4) Status post left hemicolectomy Code(s): Z90.49 - ACQUIRED ABSENCE OF OTHER SPECIFIED PARTS OF DIGESTIVE TRACT Status: Acute (5) Hypotension Status: Resolved (6) Dementia Code(s): F03.90 - UNSPECIFIED DEMENTIA WITHOUT BEHAVIORAL DISTURBANCE Status: Chronic Qualifiers: Dementia type: unspecified type Dementia behavioral disturbance: without behavioral disturbance Qualified Code(s): F03.90 - Unspecified dementia without behavioral disturbance - Plan old records reviewed/req, PT/OT 07/19/19 currently doing well post operative care slow diet advancement PT/OT discharge planning to [facility]
[2019-07-19] MEDS: hydrALAZINE 20 MG/ML VIAL SLOW IVP PRN ×2 (12:24→17:21)
[2019-07-19] MEDS ORDERED: D5 1/2 NS w/20 mEq KCL 1,000 ML IV SCH ×2 (15:16→20:02)
[2019-07-19 20:43] LABS: Hemoglobin 11.2 g/dL (14.0-18.0); Mean Corpuscular Hemoglobin 28.3 pg (27.0-31.0); Mean Corpuscular Volume 88.5 fL (78.0-98.0); Mean Platelet Volume 7.2 fL (7.4-10.4); Platelet Count 325 thou/uL (130-400); RBC Distribution Width 15.7 % (11.5-14.5); Red Blood Cell (RBC) Count 3.95 mill/uL (4.70-6.10)
[2019-07-19 20:56] LABS: Lactic Acid 1.6 mmol/L (0.5-2.2)
[2019-07-19 21:03] LABS: ALT (SGPT) 12 U/L (8-55); AST (SGOT) 28 U/L (5-34); Albumin 2.4 g/dL (3.4-4.8); Alkaline Phosphatase 128 U/L (40-110); Anion Gap 12 mmol/L (10-20); BUN (Urea Nitrogen) 15 mg/dL (8.4-25.7); Bilirubin, Total 0.9 mg/dL (0.2-1.2); Calc. Creatinine Clearance 59 mL/min (70-130); Calcium 7.9 mg/dL (7.8-10.44); Carbon Dioxide 20 mmol/L (23-31); Chloride 110 mmol/L (98-107); Estimated GFR-MDRD 71; Globulin 3.2 g/dL (2.4-3.5); Glucose 164 mg/dL (83-110); Lipase 32 U/L (8-78); Magnesium 1.7 mg/dL (1.6-2.6); Potassium 4.5 mmol/L (3.5-5.1); Protein, Total 5.6 g/dL (5.8-8.1); Sodium 137 mmol/L (136-145)
[2019-07-19 21:04] LABS: Band 9 % (5-11); Lymphocytes 4 % (21-51); MDiff Complete? YES; Monocytes 2 % (0-10); Neutrophil 85 % (42-75)
[2019-07-19] MEDS: Morphine 2 MG/ML SYRINGE SLOW IVP PRN (22:45)
[2019-07-20 00:01] LABS: Bilirubin Negative (Negative); Blood, Urine Negative (Negative); Clarity Clear (Clear); Glucose, Urine (Dipstick) Normal (Negative); Leukocyte Negative Leu/uL (Negative); Mucous/LPF Rare LPF (<2+); Nitrite Negative (Negative); Protein, Urine (Dipstick) 20 mg/dL (Neg-Trace); RBC/HPF 0-3 HPF (0-3); Squamous Epithelial 0-3 HPF (0-3); Urobilinogen Normal mg/dL (Less than 2); WBC/HPF 0-3 HPF (0-3)
[2019-07-20 00:02] LABS: Bacteria/HPF Rare-Few HPF (None Seen)
[2019-07-20 00:03] LABS: Urine Culture Reflex No No
[2019-07-20] MEDS: Morphine 2 MG/ML SYRINGE SLOW IVP PRN (03:57)
[2019-07-20 05:23] LABS: Anion Gap 15 mmol/L (10-20); BUN (Urea Nitrogen) 16 mg/dL (8.4-25.7); Calc. Creatinine Clearance 56 mL/min (70-130); Calcium 8.2 mg/dL (7.8-10.44); Carbon Dioxide 21 mmol/L (23-31); Chloride 109 mmol/L (98-107); Estimated GFR-MDRD 67; Glucose 151 mg/dL (83-110); Potassium 4.6 mmol/L (3.5-5.1); Sodium 140 mmol/L (136-145)
[2019-07-20 05:33] LABS: Band 8 % (5-11); Hemoglobin 8.7 g/dL (14.0-18.0); Lymphocytes 2 % (21-51); MDiff Complete? YES; Mean Corpuscular HGB CONC 31.5 g/dL (32.0-36.0); Mean Corpuscular Volume 88.9 fL (78.0-98.0); Mean Platelet Volume 7.2 fL (7.4-10.4); Monocytes 1 % (0-10); Neutrophil 89 % (42-75); Platelet Count 387 thou/uL (130-400); RBC Distribution Width 15.7 % (11.5-14.5); Red Blood Cell (RBC) Count 3.09 mill/uL (4.70-6.10); White Blood Cell (WBC) Count 15.9 thou/uL (4.8-10.8)
--- NOTE | 2019-07-20 05:58 | PDOC.EVN ---
Event Note - Event Note Event Note: called to bedside by nursing concerned, patient tachycardin during night and became agitated now, chronically nonverbal, patient in bed, agitated and not responding to commends, attempting to remove devices, physical exam performed and significant for abdominal tenderness, will order CT abdomen pelvis w/ IV contrast, had blood cultures and urinalysis yesterday and lactic acid from tonight wnl, will hold further morphine on conern this is causing issues, start empiric cipro/flagyl (has penicillin allergy) and will communicate with day hospitalist need for close monitoring. also will commmunicate CT findings to surgeon if abnormal. will need restraints for the moment due to attempts to remove holt
--- NOTE | 2019-07-20 07:11 | PDOC.GSPN ---
Surgery Progress Note: Subj - Subjective Narrative: Mr. 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 Overnight, while still on the surgical floor, pt became Tachycardic in the 120s (128 highest) without fever and BPs averaging 140-150s/75-84, so around 0430 was transferred to medical and night hospitalist was consulted. Around 0530 pt remained tachycardic with high in the 140s (per nurse) and afebrile, but became restless pulling at his James and was found to have a firm abdomen. Pt was placed in restraints and CT of abdomen/pelvis with contrast was performed this morning (pending results). This morning pt remains Tachycardic (120), resp of 22, BP 140/82 and O2 sat of 93 on RA. He complains of "little bit" of pain in his abdomen similar to last night for which he received morphine at 0400, but speech is mostly unintelligible secondary to advanced dementia so pt is difficult to understand. Per nursing, he was able to tolerate full liquids last night with no nausea or vomiting. He had one BM overnight per nursing without melena/hematochezia and remains on a James with 350 mL output overnight. Urinalysis and lactic acid (1.6) from yesterday were WNL, still awaiting blood culture results, and CXR for leukocytosis showed free air beneath the right hemidiaphragm and pathcy opacities that could respresent atelectasis or developing infectious pneumonitis. Surgery Progress Note: Obj - Vital signs Vital signs: Vital Signs - Most Recent Temp Pulse Resp BP Pulse Ox 98.1 F 120 H 22 H 140/82 93 L 07/20/19 04:55 07/20/19 04:55 07/20/19 04:55 07/20/19 04:55 07/20/19 04:55 - Physical Exam General: other (Pt is lying in bed with restaints in place. NAD. He is alert but does not communicate effectively.) Cardiovascular: regular rate and rhythm, no murmur Respiratory: clear to auscultation, normal respiratory effort, breath sounds present Abdomen: other (slightyly distended and diffusely firm with hypoactive bowel sounds. Mild tenderness with palpation to midline and left abdomen. Left of midline to flank near surgical site is erythematous and warm to the touch. Surgical wounds themselves are healing well.) Psychiatric: other (patient speech is difficult to understand) Surgery Progress Note: Results - Labs Result Diagrams: 07/20/19 04:45 07/20/19 04:45 Lab results: Laboratory Results - last 24 hr 07/19/19 07/19/19 07/19/19 20:27 20:27 20:27 WBC 16.0 H RBC 3.95 L Hgb 11.2 L Hct 34.9 L MCV 88.5 MCH 28.3 MCHC 32.0 RDW 15.7 H Plt Count 325 MPV 7.2 L Neutrophils % (Manual) 85 H Band Neuts % (Manual) 9 Lymphocytes % (Manual) 4 L Monocytes % (Manual) 2 Neutrophils # Not Reportable Lymphocytes # Not Reportable Sodium 137 Potassium 4.5 Chloride 110 H Carbon Dioxide 20 L Anion Gap 12 BUN 15 Creatinine 1.00 Estimated GFR (MDRD) 71 Glucose 164 H Lactic Acid 1.6 Calcium 7.9 Magnesium 1.7 Total Bilirubin 0.9 AST 28 ALT 12 Alkaline Phosphatase 128 H Serum Total Protein 5.6 L Albumin 2.4 L Globulin 3.2 Albumin/Globulin Ratio 0.8 L Lipase 32 Urine Color Urine Clarity Urine pH Ur Specific [place] Urine Protein Urine Glucose (UA) Urine Ketones Urine Blood Urine Nitrite Urine Bilirubin Urine Urobilinogen Ur Leukocyte Esterase Urine RBC Urine WBC Ur Squamous Epith Cells Urine Bacteria Hyaline Casts Urine Mucus Urine Culture Reflexed 07/19/19 07/20/19 07/20/19 20:40 04:45 04:45 WBC 15.9 H RBC 3.09 L Hgb 8.7 L Hct 27.5 L MCV 88.9 MCH 28.0 MCHC 31.5 L RDW 15.7 H Plt Count 387 MPV 7.2 L Neutrophils % (Manual) 89 H Band Neuts % (Manual) 8 Lymphocytes % (Manual) 2 L Monocytes % (Manual) 1 Neutrophils # Lymphocytes # Sodium 140 Potassium 4.6 Chloride 109 H Carbon Dioxide 21 L Anion Gap 15 BUN 16 Creatinine 1.05 Estimated GFR (MDRD) 67 Glucose 151 H Lactic Acid Calcium 8.2 Magnesium Total Bilirubin AST ALT Alkaline Phosphatase Serum Total Protein Albumin Globulin Albumin/Globulin Ratio Lipase Urine Color Yellow Urine Clarity Clear Urine pH 5.5 Ur Specific [place] 1.017 Urine Protein 20 Urine Glucose (UA) Normal Urine Ketones Negative Urine Blood Negative Urine Nitrite Negative Urine Bilirubin Negative Urine Urobilinogen Normal Ur Leukocyte Esterase Negative Urine RBC 0-3 Urine WBC 0-3 Ur Squamous Epith Cells 0-3 Urine Bacteria Rare-Few Hyaline Casts 0-3 Urine Mucus Rare Urine Culture Reflexed No Surgery Progress Note: A/P - Problem (1) Colon cancer Current Visit: Yes Code(s): C18.9 - MALIGNANT NEOPLASM OF COLON, UNSPECIFIED Status: Acute Qualifiers: Colon location: unspecified part of colon Qualified Code(s): C18.9 - Malignant neoplasm of colon, unspecified - Plan Plan: Mr. 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 Overnight, pt became and remains tachycardic, agitated, and found to have a diffusely firm abdomen. Current vitals show HR of 120, RR of 22, O2 of 93 on RA and relatively stable BP of 140/ 82. CT of abdomen/pelvis with contrast was performed this morning and we are awaiting results. Today's hemoglobin is 8.7 (was 11.2 last night, 9.5 yesterday morning, and 8.0 when presented on 07/13). Leukocytosis persists with current WBC of 15.9 (after a high of 22.3 yesterday morning); however, neutrophilia has worsened to 89% from 60% yesterday morning. Chemistry remains relatively normal with improving blood glucose levels. Today, we will start Cipro and Flagyl (pt has PCN allergy)for suspected infection/sepsis, hold further morphine as may be contributing to current problems, continue to monitor vitals/BMs/urinary output, and review CT findings when available to assess for any bleeding. Repeat CBC (trending H&H), chemistry, and review blood cultures when available. Diet will be returned to clear liquids and patient will be encouraged to ambulate with PT. Addendum - Physician - Physician Attestation Date/Time: 07/20/19 9204 I personally performed or re-performed the physical examination and medical decision making. I have verified all student documentation or findings, including history, physical exam and/or medical decision making. CT scan was evaluated upon arrival and revealed a large volume of gas and stool within the rectum and distal colon. I performed a digital rectal examination and anal dilatation with expression of a large volume of liquid stool and gas, which was under pressure. His abdomen was considerably softer after this procedure. This unfortunately occurs occasionally and postoperative patients suffering from dementia. Sometimes, this is a recurring problem, which will have to be addressed. For now, I will continue his full liquid diet and encourage continued mobility.
[2019-07-20] MEDS: metroNIDAZOLE 500 MG in Premix Bag 1 BAG IVPB SCH ×5 (07:18→23:11)
--- NOTE | 2019-07-20 07:55 | CT ---
PRELIMINARY REPORT/[facility]/EMERGENCY AFTER HOURS PROCEDURE EXAM: CT Abdomen and Pelvis with Intravenous Contrast CLINICAL HISTORY: PT HAD A HEMICOLECTOMY ON ; PT C/ O ABDOMINAL PAIN. TO GIVE RESULTS CALL [phone]; ASK FO R RM 261 NURSE TECHNIQUE: Axial computed tomography images of the abdomen and pelvis with intravenous contrast. CONTRAST: With; ISOVUE 370,100mL COMPARISON: None provided. FINDINGS: LUNG BASES: Bilateral pleural effusions with passive atelectasis. LIVER: Unremarkable. GALLBLADDER AND BILE DUCTS: Unremarkable. No calcified stone. No ductal dilation. PANCREAS: Unremarkable. SPLEEN: Unremarkable. ADRENAL GLANDS: Unremarkable. KIDNEYS, URETERS, AND BLADDER: Unremarkable. No hydronephrosis or nephrolithiasis. No ureteral or zuhair dder calculi. STOMACH AND BOWEL: Free intraperitoneal air. Patient had recent hemicolectomy surgery Moderate hiatal hernia. There is prominent dilation of the remaining large bowel involving the transverse and left colon. Babatunde rounding mild inflammation APPENDIX: No CT evidence for appendicitis. LYMPH NODES: No lymphadenopathy. REPRODUCTIVE: Prostatic hypertrophy. VASCULATURE: No aortic aneurysm. BONES: Degenerative changes affect the spine ABDOMINAL WALL AND SOFT TISSUES: Unremarkable. IMPRESSION: 1. Bilateral pleural effusions with passive atelectasis 2. Right side hemicolectomy. Free intraperitoneal postoperative air 3. Significant dilation of the transverse and left colon with surrounding inflammation raise possibil ity of colitis. 4. Moderate hiatal hernia ELECTRONICALLY SIGNED BY: Deven Saenz M.D. Jul 20, 2019 7:40:55 AM [employer] This report is intended for review by the ordering physician only, in accordance of law. If you recei ve this report in error, please call [facility] at [phone]. FINAL REPORT: I agree with the preliminary report provided by [facility]. There is dilatation of the colon wi th air-fluid levels which may reflect sequelae of a diffuse ileus; however, an infectious colitis cannot be entirely excluded. There is scattered free air within the abdomen and pelvis consistent wit h the patient's recent postop state. There are small bilateral pleural effusions and bibasilar atelectasis. There is a moderate sized hiatal hernia. There is fatty infiltration of the liver. There is a gastroplasty change involving the stomach. There are moderate calcifications involving abdominopelvic vasculature. There is mild diffuse anasarca. There is diffuse osteopenia. No acute oss eous abnormality is demonstrated. Transcribed Date/Time: 07/20/2019 10:06 AM
[2019-07-20] MEDS: Famotidine 20 MG TAB PO SCH ×2 (09:08→19:50)
[2019-07-20] MEDS: Famotidine/PF 20 mg/2ml Vial SLOW IVP SCH ×2 (09:08→22:23)
--- NOTE | 2019-07-20 09:11 | RAD ---
PORTABLE CHEST 1 VIEW: DATE: 07/20/2019. TIME: 12:07 a.m. HISTORY: Wheezing. FINDINGS/IMPRESSION: The heart size is stable. There is mild pulmonary vascular congestion. Patchy opacity in the medial left lung base with obscuration of the left hemidiaphragm is again seen. No pneumothoraces or large effusions are identified. The air in the diaphragm appears less prominent. POS: [facility]
[2019-07-20] MEDS: HYDROcodone/Acetaminophen 7.5/325 mg Tablet PO PRN (10:23)
[2019-07-20] MEDS: Enoxaparin Sodium 40 MG/0.4 ML SYRINGE SC SCH (11:05)
--- NOTE | 2019-07-20 12:09 | PDOC.HOSPP ---
- Subjective Encounter Date: 07/20/19 Encounter Time: 09:00 Subjective: last night pt was agitated, c/o abdominal pain, CT abdomen done and transferred to tele, bedside, he had manual disimpaction after that pt felt much better - Objective Vital Signs & Weight: Vital Signs (12 hours) Temp Pulse Resp BP Pulse Ox 07/20/19 11:03 98.3 F 119 H 18 158/78 H 94 L 07/20/19 07:25 98.1 F 123 H 18 163/88 H 94 L 07/20/19 04:55 98.1 F 120 H 22 H 140/82 93 L 07/20/19 03:10 97.4 F L 125 H 18 142/75 H 95 Weight Weight 165 lb 4.8 oz Most Recent Monitor Data Heart Rate from ECG 97 NIBP 109/59 NIBP BP-Mean 75 Respiration from ECG 21 SpO2 97 I&O: 07/19/19 07/20/19 07/21/19 06:59 06:59 06:59 Intake Total 1750 2090 Output Total 1000 350 Balance 750 1740 Result Diagrams: 07/20/19 04:45 07/20/19 04:45 Radiology Reviewed by me: Yes EKG Reviewed by me: Yes Hospitalist ROS - Review of Systems ROS unobtainable: due to mental status - Medication Medications: Active Medications Generic Name Dose Route Start Last Admin Trade Name Freq PRN Reason Stop Dose Admin Hydrocodone Bitart/Acetaminophen 1 tab 07/18/19 15:30 07/20/19 10:23 [place] 7.5/325 PO 1 tab Q4H PRN Administration Moderate Pain (4-6) Albuterol/Ipratropium 3 ml 07/17/19 15:45 07/20/19 00:59 Duoneb NEB 3 ml Q4H PRN Administration Wheezing Enoxaparin Sodium 40 mg 07/18/19 09:00 07/20/19 11:05 Lovenox SC 40 mg 0900 GEORGETTE Administration Famotidine 20 mg 07/17/19 21:00 07/20/19 09:08 Pepcid PO Not Given Q12HR GEORGETTE Famotidine 20 mg 07/17/19 21:00 07/20/19 09:08 Pepcid SLOW IVP 20 mg Q12HR GEORGETTE Administration Hydralazine HCl 10 mg 07/17/19 15:45 07/19/19 17:21 Apresoline SLOW IVP 10 mg Q4H PRN Administration SBP > 170 or DBP > 100 Metronidazole 500 mg/ Device 100 mls @ 100 mls/hr 07/20/19 08:00 07/20/19 07: 24 IVPB 100 mls 0800,1600,2359 GEORGETTE Administration Morphine Sulfate 2 mg 07/17/19 15:45 07/20/19 03:57 Morphine SLOW IVP 2 mg Q2H PRN Administration Mild Pain (1-3) Sodium Chloride 10 ml 07/13/19 05:26 07/13/19 21:05 Normal Saline Pf FS 10 ml PRN PRN Administration RECONSTITUTION Sodium Chloride 10 ml 07/14/19 10:32 07/20/19 09:09 Flush - Normal Saline IVF 10 ml PRN PRN Administration Saline Flush - Exam General Appearance: NAD, awake alert Eye: PERRL, anicteric sclera ENT: normocephalic atraumatic, no oropharyngeal lesions Neck: supple, symmetric, no JVD Heart: RRR, no murmur, no gallops Respiratory: CTAB, no wheezes, no rales Respiratory - other findings: reduced air entry at base Gastrointestinal: soft, non-tender, non-distended, normal bowel sounds Extremities: no cyanosis, no clubbing Skin: normal turgor, no lesions Neurological: no focal deficits Musculoskeletal: normal tone, normal strength Psychiatric: normal affect, normal behavior Hosp A/P (1) GI bleeding Code(s): K92.2 - GASTROINTESTINAL HEMORRHAGE, UNSPECIFIED Status: Acute Qualifiers: GI bleed type/associated pathology: anorectal hemorrhage Qualified Code(s) : K62.5 - Hemorrhage of anus and rectum (2) Acute blood loss anemia Code(s): D62 - ACUTE POSTHEMORRHAGIC ANEMIA Status: Acute (3) Colon cancer Code(s): C18.9 - MALIGNANT NEOPLASM OF COLON, UNSPECIFIED Status: Acute Qualifiers: Colon location: unspecified part of colon Qualified Code(s): C18.9 - Malignant neoplasm of colon, unspecified (4) Status post left hemicolectomy Code(s): Z90.49 - ACQUIRED ABSENCE OF OTHER SPECIFIED PARTS OF DIGESTIVE TRACT Status: Acute (5) Hypotension Status: Resolved (6) Dementia Code(s): F03.90 - UNSPECIFIED DEMENTIA WITHOUT BEHAVIORAL DISTURBANCE Status: Chronic Qualifiers: Dementia type: unspecified type Dementia behavioral disturbance: without behavioral disturbance Qualified Code(s): F03.90 - Unspecified dementia without behavioral disturbance (7) Atelectasis of both lungs Code(s): J98.11 - ATELECTASIS Status: Acute (8) Hiatal hernia Code(s): K44.9 - DIAPHRAGMATIC HERNIA WITHOUT OBSTRUCTION OR GANGRENE Status: Acute - Plan old records reviewed/req, plan discussed w/ family, continue antibiotics, PT/OT , renal social worker, incentive spirometry 07/19/19 currently doing well post operative care slow diet advancement PT/OT discharge planning to SNU 07/20 transfer back to surgical floor continue levaquin and flagyl will need placement discussed with medication reviewed and continue to provide supportive care continue PT and diet as per surgeon
[2019-07-20] MEDS: Lactated Ringer's 1,000 ML IV SCH (16:44)
--- NOTE | 2019-07-20 17:57 | EKG ---
Test Reason : STAT Blood Pressure : / mmHG Vent. Rate : 123 BPM Atrial Rate : 123 BPM P-R Int : 140 ms QRS Dur : 074 ms QT Int : 316 ms P-R-T Axes : 051 022 012 degrees QTc Int : 452 ms Sinus tachycardia Otherwise normal ECG Confirmed by Isha AGUILERA ([id number]) on 07/20/2019 5:57:38 PM Referred By: SLIM Confirmed By:Isha AGUILERA
[2019-07-20] MEDS: hydrALAZINE 20 MG/ML VIAL SLOW IVP PRN (22:34)
[2019-07-21 06:23] LABS: #Eosinphils 0.1 thou/uL (0.0-0.7); #Lymphocytes 0.9 thou/uL (1.20-3.40); #Monocytes 0.8 thou/uL (0.11-0.59); #Neutrophils 13.8 thou/uL (1.40-6.50); %Basophils 0.1 % (0.0-1.0); %Eosinophils 0.6 % (0.0-10.0); %Lymphocytes 5.9 % (21.0-51.0); %Monocytes 5.1 % (0.0-10.0); %Neutrophils 88.4 % (42.0-75.0); Hemoglobin 8.4 g/dL (14.0-18.0); Mean Corpuscular HGB CONC 32.5 g/dL (32.0-36.0); Mean Corpuscular Hemoglobin 28.5 pg (27.0-31.0); Mean Corpuscular Volume 87.7 fL (78.0-98.0); Platelet Count 383 thou/uL (130-400); RBC Distribution Width 15.6 % (11.5-14.5); Red Blood Cell (RBC) Count 2.94 mill/uL (4.70-6.10); White Blood Cell (WBC) Count 15.6 thou/uL (4.8-10.8)
[2019-07-21 06:39] LABS: Anion Gap 12 mmol/L (10-20); BUN (Urea Nitrogen) 12 mg/dL (8.4-25.7); Calc. Creatinine Clearance 66 mL/min (70-130); Calcium 8.1 mg/dL (7.8-10.44); Carbon Dioxide 22 mmol/L (23-31); Chloride 106 mmol/L (98-107); Estimated GFR-MDRD 83; Glucose 127 mg/dL (83-110); Potassium 4.2 mmol/L (3.5-5.1); Sodium 136 mmol/L (136-145)
[2019-07-21] MEDS ORDERED: Diabetic Tussin 200 MG/10 ML UDCUP PO PRN (06:57)
[2019-07-21] MEDS ORDERED: Labetalol HCl 100 MG/20 ML VIAL SLOW IVP PRN (06:57)
[2019-07-21] MEDS ORDERED: Sodium Chloride 0.65% Nasal 44 ML BOT EA NARE PRN (06:57)
[2019-07-21] MEDS ORDERED: Bisacodyl 10 MG SUPP PR PRN (06:57)
[2019-07-21] MEDS ORDERED: Cepastat Lozenges 1 LOZ PO PRN (06:57)
[2019-07-21] MEDS ORDERED: Artificial Tears 18 DROP/0.9 ML EA EYE PRN (06:57)
[2019-07-21] MEDS ORDERED: Senokot S 8.6-50 MG TAB PO PRN (06:57)
[2019-07-21] MEDS ORDERED: Calcium Carbonate 500 MG ChewTAB PO PRN (06:57)
[2019-07-21] MEDS: metroNIDAZOLE 500 MG in Premix Bag 1 BAG IVPB SCH ×2 (08:22→15:29)
[2019-07-21] MEDS ORDERED: Acetaminophen 325 MG TAB PO PRN (08:36)
[2019-07-21] MEDS ORDERED: Ketorolac Tromethamine 30 MG/ML VIAL IVP PRN (08:36)
[2019-07-21] MEDS: Enoxaparin Sodium 40 MG/0.4 ML SYRINGE SC SCH (09:30)
--- NOTE | 2019-07-21 10:24 | PDOC.HOSPP ---
- Subjective Encounter Date: 07/21/19 Encounter Time: 08:45 Subjective: pt is tachycardic and had fever, no nausea, on room air - Objective Vital Signs & Weight: Vital Signs (12 hours) Temp Pulse Resp BP BP Pulse Ox 07/21/19 07:54 98.5 F 133 H 22 H 176/100 H 94 L 07/21/19 05:25 94 L 07/21/19 03:42 99.4 F 109 H 18 140/88 94 L 07/20/19 23:20 98.4 F 130 H 20 164/84 H 93 L 07/20/19 22:34 110 H 178/88 H Weight Weight 165 lb 4.8 oz Most Recent Monitor Data Heart Rate from ECG 97 NIBP 109/59 NIBP BP-Mean 75 Respiration from ECG 21 SpO2 97 I&O: 07/20/19 07/21/19 07/22/19 06:59 06:59 06:59 Intake Total 2090 1470 Output Total 350 1675 Balance 1740 -205 Result Diagrams: 07/21/19 06:10 07/21/19 06:10 Hospitalist ROS - Review of Systems ROS unobtainable: due to mental status - Medication Medications: Active Medications Generic Name Dose Route Start Last Admin Trade Name Freq PRN Reason Stop Dose Admin Hydrocodone Bitart/Acetaminophen 1 tab 07/18/19 15:30 07/20/19 10:23 [place] 7.5/325 PO 1 tab Q4H PRN Administration Moderate Pain (4-6) Albuterol/Ipratropium 3 ml 07/17/19 15:45 07/21/19 05:25 Duoneb NEB 3 ml Q4H PRN Administration Wheezing Enoxaparin Sodium 40 mg 07/18/19 09:00 07/21/19 09:30 Lovenox SC 40 mg 0900 GEORGETTE Administration Hydralazine HCl 10 mg 07/17/19 15:45 07/20/19 22:34 Apresoline SLOW IVP 10 mg Q4H PRN Administration SBP > 170 or DBP > 100 Metronidazole 500 mg/ Device 100 mls @ 100 mls/hr 07/20/19 08:00 07/21/19 08: 22 IVPB 100 mls 0800,1600,2359 GEORGETTE Administration Levofloxacin 500 mg/ Device 100 mls @ 100 mls/hr 07/20/19 13:00 12/06/19 12: 18 IVPB 100 mls Q24HR GEORGETTE Administration Lactated Ringer's 1,000 mls @ 50 mls/hr 07/20/19 16:45 07/20/19 16:44 Lactated Ringer's IV 1,000 mls .Q20H GEORGETTE Administration Morphine Sulfate 2 mg 07/17/19 15:45 07/20/19 03:57 Morphine SLOW IVP 2 mg Q2H PRN Administration Mild Pain (1-3) Pantoprazole Sodium 40 mg 07/21/19 09:00 07/21/19 08:23 Protonix PO 40 mg DAILY GEORGETTE Administration Sodium Chloride 10 ml 07/13/19 05:26 07/13/19 21:05 Normal Saline Pf FS 10 ml PRN PRN Administration RECONSTITUTION Sodium Chloride 10 ml 07/14/19 10:32 07/20/19 09:09 Flush - Normal Saline IVF 10 ml PRN PRN Administration Saline Flush - Exam General Appearance: NAD, awake alert Eye: PERRL, anicteric sclera ENT: normocephalic atraumatic, no oropharyngeal lesions, dry oral mucosa Neck: supple, symmetric, no JVD Heart: RRR, no murmur, no gallops, no rubs Heart - other findings: tachycardia Respiratory: CTAB Respiratory - other findings: reduced air entry at base Gastrointestinal: soft, non-tender, non-distended Gastrointestinal - other findings: surgical site clean Extremities: no cyanosis, no clubbing, no edema Skin: normal turgor, no lesions Neurological: cranial nerve grossly intact, no focal deficits Musculoskeletal: normal tone, normal strength Psychiatric: normal affect, normal behavior Psychiatric - other findings: intermittent agiatation Hosp A/P (1) GI bleeding Code(s): K92.2 - GASTROINTESTINAL HEMORRHAGE, UNSPECIFIED Status: Acute Qualifiers: GI bleed type/associated pathology: anorectal hemorrhage Qualified Code(s) : K62.5 - Hemorrhage of anus and rectum (2) Acute blood loss anemia Code(s): D62 - ACUTE POSTHEMORRHAGIC ANEMIA Status: Acute (3) Colon cancer Code(s): C18.9 - MALIGNANT NEOPLASM OF COLON, UNSPECIFIED Status: Acute Qualifiers: Colon location: unspecified part of colon Qualified Code(s): C18.9 - Malignant neoplasm of colon, unspecified (4) Status post left hemicolectomy Code(s): Z90.49 - ACQUIRED ABSENCE OF OTHER SPECIFIED PARTS OF DIGESTIVE TRACT Status: Acute (5) Hypotension Status: Resolved (6) Dementia Code(s): F03.90 - UNSPECIFIED DEMENTIA WITHOUT BEHAVIORAL DISTURBANCE Status: Chronic Qualifiers: Dementia type: unspecified type Dementia behavioral disturbance: without behavioral disturbance Qualified Code(s): F03.90 - Unspecified dementia without behavioral disturbance (7) Atelectasis of both lungs Code(s): J98.11 - ATELECTASIS Status: Acute (8) Hiatal hernia Code(s): K44.9 - DIAPHRAGMATIC HERNIA WITHOUT OBSTRUCTION OR GANGRENE Status: Acute (9) Pneumonia Code(s): J18.9 - PNEUMONIA, UNSPECIFIED ORGANISM Status: Suspected (10) Delirium Code(s): R41.0 - DISORIENTATION, UNSPECIFIED Status: Acute - Plan old records reviewed/req, continue antibiotics, PT/OT, social problems specialist 07/19/19 currently doing well post operative care slow diet advancement PT/OT discharge planning to SNU 07/20 transfer back to surgical floor continue levaquin and flagyl will need placement discussed with medication reviewed and continue to provide supportive care continue PT and diet as per surgeon 07/21/19 add toradol for pain add tylenol for fever continue levaquin and flagyl medication reviewed and continue to provide supportive care will need snu placement continue gentle ivf
--- NOTE | 2019-07-21 12:21 | PDOC.GSPN ---
Surgery Progress Note: Subj - Subjective Narrative: Patient is nonverbal but does not grimace or push my hand away as I'm examining his abdomen. He has not had any vomiting. His abdomen is fairly distended and tympanitic however. His incisions look okay. Bowel sounds are present but hypoactive. With digital rectal examination he passed a moderate amount of stool and gas. He has been variably tachycardic between 100 and the 130 but other vital signs are fairly normal, with one low grade temperature of 100.1 yesterday the temperature normal today. His white count is stable and his electrolytes are okay. Assessment/plan: Postop day 4 from left hemicolectomy with distention and tachycardia. I reviewed his CT from yesterday. No obvious leak seen but his colon was quite distended. There was some free air in the abdomen which could simply be postsurgical. No evidence of abscess or fluid around the anastomosis. The remaining colon on the left look somewhat inflamed but this could just be due to mobilization. I suspect that he has colonic atony due to age and immobility, but I'm concerned that the distention of his colon could put him at higher risk for leak. I ordered a 12-lead EKG the results of which are pending. If this is sinus tachycardia I will likely repeat his CT to make sure the amount of free air in the abdomen is not increasing. I did send stool for C. difficile but doubt that this is present; there was no odor to the stool and diarrhea after hemicolectomy is common. He is quite frail and his advanced dementia and immobility make it difficult to monitor and treat him appropriately. His prognosis is quite poor. Surgery Progress Note: Obj - Vital signs Vital signs: Vital Signs - Most Recent Temp Pulse Resp BP Pulse Ox 98.5 F 105 H 22 H 164/83 H 94 L 07/21/19 07:54 07/21/19 09:00 07/21/19 07:54 07/21/19 09:00 07/21/19 08:00 Surgery Progress Note: Results - Labs Result Diagrams: 07/21/19 06:10 07/21/19 06:10 Lab results: Laboratory Results - last 24 hr 07/21/19 07/21/19 06:10 06:10 WBC 15.6 H RBC 2.94 L Hgb 8.4 L Hct 25.8 L MCV 87.7 MCH 28.5 MCHC 32.5 RDW 15.6 H Plt Count 383 MPV 7.0 L Neutrophils % 88.4 H Lymphocytes % 5.9 L Monocytes % 5.1 Eosinophils % 0.6 Basophils % 0.1 Neutrophils # 13.8 H Lymphocytes # 0.9 L Monocytes # 0.8 H Eosinophils # 0.1 Basophils # 0.0 Sodium 136 Potassium 4.2 Chloride 106 Carbon Dioxide 22 L Anion Gap 12 BUN 12 Creatinine 0.88 Estimated GFR (MDRD) 83 Glucose 127 H Calcium 8.1
[2019-07-21] MEDS: Lactated Ringer's 1,000 ML IV SCH ×2 (13:10→15:29)
[2019-07-21] MEDS ORDERED: Diltiazem 125 MG in Sodium Chloride 0.9% 100 ML IVPB SCH (13:15)
[2019-07-21] MEDS ORDERED: Amiodarone 200 MG TAB PO SCH (16:00)
--- NOTE | 2019-07-21 18:24 | CON ---
DATE OF CONSULTATION: REASON FOR CONSULTATION: Tachycardia. HISTORY OF PRESENT ILLNESS: Mr. Vieira is an 84-year-old gentleman with history of dementia, who has been in the hospital with abdominal pain. The patient underwent surgery on 07/17/2019 for colon cancer proximal to the splenic flexure. He had a laparoscopic left hemicolectomy. The patient has been noted to be tachycardic. He has been sent to the telemetry area. No chest pain or pressure. The patient, however, is nonverbal. MEDICATIONS: Please nurses' notes. REVIEW OF SYSTEMS: Not obtainable. PHYSICAL EXAMINATION: VITAL SIGNS: On examination, blood pressure 164/79 and pulse is 101 and it is irregular. LUNGS: Clear. CARDIAC: Irregularly irregular. ABDOMEN: Soft. EXTREMITIES: Warm, dry. No clubbing or cyanosis. There is 1+ edema. DIAGNOSTIC DATA: The rhythm strip reveals that he is in atrial fibrillation with increased ventricular response, earlier in the hospital it was sinus rhythm. ASSESSMENT: 1. Paroxysmal atrial fibrillation. 2. Postoperative status. 3. Dementia with nonverbal status. PLAN: Start oral amiodarone. Job ID: [id number]
[2019-07-21] MEDS: Atorvastatin Calcium 20 MG TAB PO SCH (20:53)
[2019-07-21] MEDS: Amiodarone 200 MG TAB PO SCH (20:53)
[2019-07-21] MEDS: Donepezil HCl 10 MG TAB PO SCH (20:53)
[2019-07-21] MEDS: HYDROcodone/Acetaminophen 7.5/325 mg Tablet PO PRN (20:53)
[2019-07-22] MEDS: metroNIDAZOLE 500 MG in Premix Bag 1 BAG IVPB SCH ×2 (00:31→09:09)
[2019-07-22] MEDS: Enoxaparin Sodium 40 MG/0.4 ML SYRINGE SC SCH (09:09)
[2019-07-22] MEDS: Amiodarone 200 MG TAB PO SCH ×3 (09:10→20:41)
--- NOTE | 2019-07-22 10:02 | PDOC.HOSPP ---
- Subjective Encounter Date: 07/22/19 Encounter Time: 08:00 Subjective: Patient seen and examined. No overnight events - Objective Vital Signs & Weight: Vital Signs (12 hours) Temp Pulse Resp BP Pulse Ox 07/22/19 07:07 98.4 F 96 16 159/82 H 94 L 07/22/19 04:00 98.9 F 91 16 147/67 H 94 L 07/22/19 00:43 98.7 F 143/71 H Weight Weight 166 lb 8 oz Most Recent Monitor Data Heart Rate from ECG 97 NIBP 109/59 NIBP BP-Mean 75 Respiration from ECG 21 SpO2 97 I&O: 07/21/19 07/22/19 07/23/19 06:59 06:59 06:59 Intake Total 1470 920 Output Total 1675 1750 Balance -205 -830 Result Diagrams: 07/21/19 06:10 07/21/19 06:10 EKG Reviewed by me: Yes Hospitalist ROS - Review of Systems ROS unobtainable: due to mental status - Medication Medications: Active Medications Generic Name Dose Route Start Last Admin Trade Name Freq PRN Reason Stop Dose Admin Hydrocodone Bitart/Acetaminophen 1 tab 07/18/19 15:30 07/21/19 20:53 [place] 7.5/325 PO 1 tab Q4H PRN Administration Moderate Pain (4-6) Albuterol/Ipratropium 3 ml 07/17/19 15:45 07/21/19 05:25 Duoneb NEB 3 ml Q4H PRN Administration Wheezing Amiodarone HCl 400 mg 07/21/19 21:00 07/22/19 09:10 Cordarone PO 400 mg TID GEORGETTE Administration Atorvastatin Calcium 20 mg 07/21/19 21:00 07/21/19 20:53 Lipitor PO 20 mg HS GEORGETTE Administration Donepezil HCl 10 mg 07/21/19 21:00 07/21/19 20:53 Aricept PO 10 mg HS GEORGETTE Administration Enoxaparin Sodium 40 mg 07/18/19 09:00 07/22/19 09:09 Lovenox SC 40 mg 0900 GEORGETTE Administration Hydralazine HCl 10 mg 07/17/19 15:45 07/20/19 22:34 Apresoline SLOW IVP 10 mg Q4H PRN Administration SBP > 170 or DBP > 100 Metronidazole 500 mg/ Device 100 mls @ 100 mls/hr 07/20/19 08:00 07/22/19 09: 09 IVPB 100 mls 0800,1600,2359 GEORGETTE Administration Levofloxacin 500 mg/ Device 100 mls @ 100 mls/hr 07/20/19 13:00 07/21/19 13: 10 IVPB 100 mls Q24HR GEORGETTE Administration Lactated Ringer's 1,000 mls @ 50 mls/hr 07/20/19 16:45 07/21/19 15:29 Lactated Ringer's IV 1,000 mls .Q20H GEORGETTE Administration Morphine Sulfate 2 mg 07/17/19 15:45 07/20/19 03:57 Morphine SLOW IVP 2 mg Q2H PRN Administration Mild Pain (1-3) Pantoprazole Sodium 40 mg 07/21/19 09:00 07/22/19 09:10 Protonix PO 40 mg DAILY GEORGETTE Administration Sodium Chloride 10 ml 07/13/19 05:26 07/13/19 21:05 Normal Saline Pf FS 10 ml PRN PRN Administration RECONSTITUTION Sodium Chloride 10 ml 07/14/19 10:32 07/22/19 09:09 Flush - Normal Saline IVF 10 ml PRN PRN Administration Saline Flush - Exam General Appearance: NAD, awake alert Eye: PERRL, anicteric sclera ENT: normocephalic atraumatic, no oropharyngeal lesions, dry oral mucosa Neck: supple, symmetric Heart: no gallops, no rubs, irregular Respiratory: no wheezes, no rales Gastrointestinal: soft, non-distended Gastrointestinal - other findings: mild discomfort, hypactive bowel sound Extremities: no edema Skin: normal turgor, no lesions Neurological: no focal deficits Musculoskeletal: normal tone, normal strength Psychiatric: normal affect, normal behavior Hosp A/P (1) GI bleeding Code(s): K92.2 - GASTROINTESTINAL HEMORRHAGE, UNSPECIFIED Status: Acute Qualifiers: GI bleed type/associated pathology: anorectal hemorrhage Qualified Code(s) : K62.5 - Hemorrhage of anus and rectum (2) Acute blood loss anemia Code(s): D62 - ACUTE POSTHEMORRHAGIC ANEMIA Status: Acute (3) Colon cancer Code(s): C18.9 - MALIGNANT NEOPLASM OF COLON, UNSPECIFIED Status: Acute Qualifiers: Colon location: unspecified part of colon Qualified Code(s): C18.9 - Malignant neoplasm of colon, unspecified (4) Status post left hemicolectomy Code(s): Z90.49 - ACQUIRED ABSENCE OF OTHER SPECIFIED PARTS OF DIGESTIVE TRACT Status: Acute (5) Hypotension Status: Resolved (6) Dementia Code(s): F03.90 - UNSPECIFIED DEMENTIA WITHOUT BEHAVIORAL DISTURBANCE Status: Chronic Qualifiers: Dementia type: unspecified type Dementia behavioral disturbance: without behavioral disturbance Qualified Code(s): F03.90 - Unspecified dementia without behavioral disturbance (7) Atelectasis of both lungs Code(s): J98.11 - ATELECTASIS Status: Acute (8) Hiatal hernia Code(s): K44.9 - DIAPHRAGMATIC HERNIA WITHOUT OBSTRUCTION OR GANGRENE Status: Acute (9) Pneumonia Code(s): J18.9 - PNEUMONIA, UNSPECIFIED ORGANISM Status: Suspected (10) Delirium Code(s): R41.0 - DISORIENTATION, UNSPECIFIED Status: Acute (11) Ileus, postoperative Code(s): K91.89 - OTH POSTPROCEDURAL COMPLICATIONS AND DISORDERS OF DGSTV SYS; K56.7 - ILEUS, UNSPECIFIED Status: Acute (12) Atrial fibrillation with RVR Code(s): I48.91 - UNSPECIFIED ATRIAL FIBRILLATION Status: Acute - Plan old records reviewed/req, continue antibiotics 07/19/19 currently doing well post operative care slow diet advancement PT/OT discharge planning to SNU 07/20 transfer back to surgical floor continue levaquin and flagyl will need placement discussed with medication reviewed and continue to provide supportive care continue PT and diet as per surgeon 07/21/19 add toradol for pain add tylenol for fever continue levaquin and flagyl medication reviewed and continue to provide supportive care will need snu placement continue gentle ivf 07/22/19 cardiology recommendation appreciated, 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
--- NOTE | 2019-07-22 10:18 | RAD ---
EXAM: Single view of the abdomen HISTORY: Ileus COMPARISON: None FINDINGS: Single view of the abdomen shows a nonspecific, nonobstructive bowel gas pattern. No suspi cious calcifications are seen. Degenerative changes are seen in the spine. IMPRESSION: Unremarkable exam
--- NOTE | 2019-07-22 10:52 | CT ---
CT Abdomen Pelvis WO Con: 07/22/2019 9:23 AM HISTORY: Abdominal distention status post hemicolectomy on 07/17/2019 COMPARISON: CT abdomen/pelvis 07/20/2019 TECHNIQUE: Multiple contiguous axial images were obtained and a CT of the abdomen and pelvis without IV contrast . Coronal and sagittal reformats were performed. FINDINGS: This examination is limited for the evaluation of solid organs and vascular structures due to the lac k of intravenous contrast. Lower Chest: Small bilateral pleural effusions with adjacent atelectasis. There is a moderate hiatal hernia. Abdomen: Liver: within normal limits. Bile Ducts: Normal caliber. Gallbladder: The gallbladder is high density from vicarious excretion of contrast from previous contr ast exam. Pancreas: within normal limits. Spleen: within normal limits. Adrenals: within normal limits. Kidneys: within normal limits. Pelvis: Reproductive Organs: Prostate is enlarged. Ureters: within normal limits. Bladder: Decompressed by a catheter. Bowel: Normal caliber. A rectal tube is visualized. Anastomotic staple lines are seen in the stomach and colon. Mesenteric Lymph Nodes: No enlarged mesenteric lymph nodes. Peritoneum: There is a small amount of free air along the anterior aspect of the peritoneal cavity. A small amount of free fluid is seen in the abdomen. Vessels: Atherosclerotic calcifications in the aorta Retroperitoneum: within normal limits. Abdominal Wall: within normal limits. Bones: Degenerative changes in the spine. IMPRESSION: Persistent free fluid and free air in the abdomen may represent postoperative change but a leak canno t be excluded.
[2019-07-22] MEDS: HYDROcodone/Acetaminophen 7.5/325 mg Tablet PO PRN (12:00)
--- NOTE | 2019-07-22 13:48 | PDOC.GSPN ---
Surgery Progress Note: Subj - Subjective Narrative: Patient is more alert today but answers yes to every question even those which are contradictory. He does not initially my hands are expressed pain with palpation. Bowel sounds are hypoactive. Incisions are clean and appear to be healing normally. He has a rectal tube in place with some liquid stool in the bag. His nurse states that he is taking his liquid diet without coughing or gagging. No nausea or vomiting. He did have a slight low-grade fever but his other vital signs are better. He is on oral amiodarone for his atrial fibrillation and his heart rate is around 100 now. His white count is basically unchanged, still little elevated. Assessment/plan: Status post left hemicolectomy fairly stable overall. He was transferred to telemetry yesterday for atrial fibrillation with rapid ventricular response but he is currently rate controlled. His exam is limited by his severe dementia so I repeated his CT today without contrast. This did not show any change in the amount of free air in the abdomen. He did has more free fluid, but this appears to be simple ascites fluid rather than a complex fluid collection. His colon is much less distended than on the previous CT and I do not suspect a leak. I advanced his diet back to full liquids. Prognosis is still quite guarded. Surgery Progress Note: Obj - Vital signs Vital signs: Vital Signs - Most Recent Temp Pulse Resp BP Pulse Ox 98.7 F 97 18 166/85 H 94 L 07/22/19 12:00 07/22/19 12:00 07/22/19 12:00 07/22/19 11:00 07/22/19 12:00 Surgery Progress Note: Results - Labs Result Diagrams: 07/21/19 06:10 07/21/19 06:10
[2019-07-22] MEDS: metroNIDAZOLE 500 MG TAB PO SCH (15:24)
[2019-07-22] MEDS: Atorvastatin Calcium 20 MG TAB PO SCH (20:41)
[2019-07-22] MEDS: Donepezil HCl 10 MG TAB PO SCH (20:41)
[2019-07-23] MEDS: metroNIDAZOLE 500 MG TAB PO SCH ×3 (01:29→18:11)
[2019-07-23 05:04] LABS: #Eosinphils 0.3 thou/uL (0.0-0.7); #Lymphocytes 1.1 thou/uL (1.20-3.40); #Monocytes 1.5 thou/uL (0.11-0.59); #Neutrophils 11.2 thou/uL (1.40-6.50); %Basophils 0.2 % (0.0-1.0); %Eosinophils 2.2 % (0.0-10.0); %Lymphocytes 7.8 % (21.0-51.0); %Monocytes 10.8 % (0.0-10.0); Hemoglobin 7.5 g/dL (14.0-18.0); Mean Corpuscular HGB CONC 32.5 g/dL (32.0-36.0); Mean Corpuscular Volume 89.1 fL (78.0-98.0); Mean Platelet Volume 7.8 fL (7.4-10.4); Platelet Count 380 thou/uL (130-400); RBC Distribution Width 15.5 % (11.5-14.5); Red Blood Cell (RBC) Count 2.59 mill/uL (4.70-6.10); White Blood Cell (WBC) Count 14.2 thou/uL (4.8-10.8)
[2019-07-23 05:34] LABS: ALT (SGPT) 12 U/L (8-55); AST (SGOT) 25 U/L (5-34); Albumin 1.9 g/dL (3.4-4.8); Alkaline Phosphatase 137 U/L (40-110); Anion Gap 11 mmol/L (10-20); BUN (Urea Nitrogen) 14 mg/dL (8.4-25.7); Bilirubin, Total 0.6 mg/dL (0.2-1.2); Calc. Creatinine Clearance 73 mL/min (70-130); Calcium 7.7 mg/dL (7.8-10.44); Carbon Dioxide 23 mmol/L (23-31); Chloride 106 mmol/L (98-107); Estimated GFR-MDRD Greater than 90; Glucose 137 mg/dL (83-110); Potassium 3.6 mmol/L (3.5-5.1); Protein, Total 4.9 g/dL (5.8-8.1); Sodium 136 mmol/L (136-145)
[2019-07-23] MEDS: Lactated Ringer's 1,000 ML IV SCH (05:34)
[2019-07-23] MEDS: Amiodarone 200 MG TAB PO SCH ×3 (10:04→21:54)
[2019-07-23] MEDS: Enoxaparin Sodium 40 MG/0.4 ML SYRINGE SC SCH (10:10)
--- NOTE | 2019-07-23 10:33 | PDOC.HOSPP ---
- Subjective Encounter Date: 07/23/19 Encounter Time: 08:00 Subjective: Patient seen and examined. No new complaints. No overnight events - Objective Vital Signs & Weight: Vital Signs (12 hours) Temp Pulse Resp BP Pulse Ox 07/23/19 04:48 97.7 F 92 18 170/80 H 94 L Weight Weight 168 lb 11.2 oz Most Recent Monitor Data Heart Rate from ECG 97 NIBP 109/59 NIBP BP-Mean 75 Respiration from ECG 21 SpO2 97 I&O: 07/22/19 07/23/19 07/24/19 06:59 06:59 06:59 Intake Total 920 2360 Output Total 1750 1700 Balance -830 660 Result Diagrams: 07/23/19 04:39 07/23/19 04:39 Radiology Reviewed by me: Yes EKG Reviewed by me: Yes Hospitalist ROS - Review of Systems ROS unobtainable: due to mental status - Medication Medications: Active Medications Generic Name Dose Route Start Last Admin Trade Name Freq PRN Reason Stop Dose Admin Hydrocodone Bitart/Acetaminophen 1 tab 07/18/19 15:30 07/22/19 12:00 [place] 7.5/325 PO 1 tab Q4H PRN Administration Moderate Pain (4-6) Albuterol/Ipratropium 3 ml 07/17/19 15:45 07/21/19 05:25 Duoneb NEB 3 ml Q4H PRN Administration Wheezing Amiodarone HCl 400 mg 07/21/19 21:00 07/23/19 10:04 Cordarone PO 400 mg TID GEORGETTE Administration Atorvastatin Calcium 20 mg 07/21/19 21:00 07/22/19 20:41 Lipitor PO 20 mg HS GEORGETTE Administration Donepezil HCl 10 mg 07/21/19 21:00 07/22/19 20:41 Aricept PO 10 mg HS GEORGETTE Administration Enoxaparin Sodium 40 mg 07/23/19 09:00 07/23/19 10:10 Lovenox SC 40 mg 0900 GEORGETTE Administration Hydralazine HCl 10 mg 07/17/19 15:45 07/20/19 22:34 Apresoline SLOW IVP 10 mg Q4H PRN Administration SBP > 170 or DBP > 100 Lactated Ringer's 1,000 mls @ 50 mls/hr 07/20/19 16:45 07/23/19 05:34 Lactated Ringer's IV 1,000 mls .Q20H GEORGETTE Administration Metronidazole 500 mg 07/22/19 16:00 07/23/19 10:03 Flagyl PO 500 mg 0800,1600,2359 GEORGETTE Administration Morphine Sulfate 2 mg 07/17/19 15:45 07/20/19 03:57 Morphine SLOW IVP 2 mg Q2H PRN Administration Mild Pain (1-3) Pantoprazole Sodium 40 mg 07/21/19 09:00 07/23/19 10:04 Protonix PO 40 mg DAILY GEORGETTE Administration Sodium Chloride 10 ml 07/13/19 05:26 07/13/19 21:05 Normal Saline Pf FS 10 ml PRN PRN Administration RECONSTITUTION Sodium Chloride 10 ml 07/14/19 10:32 07/22/19 09:09 Flush - Normal Saline IVF 10 ml PRN PRN Administration Saline Flush - Exam General Appearance: NAD, awake alert Eye: PERRL, anicteric sclera ENT: normocephalic atraumatic, no oropharyngeal lesions Neck: supple, symmetric, no JVD Heart: no murmur, no gallops, irregular Respiratory: CTAB, no wheezes, no rales Gastrointestinal: soft, non-tender, non-distended, normal bowel sounds Extremities: no cyanosis, no clubbing Skin: normal turgor, no lesions Neurological: no focal deficits Musculoskeletal: normal tone, normal strength Psychiatric: normal affect, normal behavior Hosp A/P (1) GI bleeding Code(s): K92.2 - GASTROINTESTINAL HEMORRHAGE, UNSPECIFIED Status: Acute Qualifiers: GI bleed type/associated pathology: anorectal hemorrhage Qualified Code(s) : K62.5 - Hemorrhage of anus and rectum (2) Acute blood loss anemia Code(s): D62 - ACUTE POSTHEMORRHAGIC ANEMIA Status: Acute (3) Colon cancer Code(s): C18.9 - MALIGNANT NEOPLASM OF COLON, UNSPECIFIED Status: Acute Qualifiers: Colon location: unspecified part of colon Qualified Code(s): C18.9 - Malignant neoplasm of colon, unspecified (4) Status post left hemicolectomy Code(s): Z90.49 - ACQUIRED ABSENCE OF OTHER SPECIFIED PARTS OF DIGESTIVE TRACT Status: Acute (5) Hypotension Status: Resolved (6) Dementia Code(s): F03.90 - UNSPECIFIED DEMENTIA WITHOUT BEHAVIORAL DISTURBANCE Status: Chronic Qualifiers: Dementia type: unspecified type Dementia behavioral disturbance: without behavioral disturbance Qualified Code(s): F03.90 - Unspecified dementia without behavioral disturbance (7) Atelectasis of both lungs Code(s): J98.11 - ATELECTASIS Status: Acute (8) Hiatal hernia Code(s): K44.9 - DIAPHRAGMATIC HERNIA WITHOUT OBSTRUCTION OR GANGRENE Status: Acute (9) Pneumonia Code(s): J18.9 - PNEUMONIA, UNSPECIFIED ORGANISM Status: Suspected (10) Delirium Code(s): R41.0 - DISORIENTATION, UNSPECIFIED Status: Acute (11) Ileus, postoperative Code(s): K91.89 - OTH POSTPROCEDURAL COMPLICATIONS AND DISORDERS OF DGSTV SYS; K56.7 - ILEUS, UNSPECIFIED Status: Acute (12) Atrial fibrillation with RVR Code(s): I48.91 - UNSPECIFIED ATRIAL FIBRILLATION Status: Acute - Plan old records reviewed/req, continue antibiotics, PT/OT, 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/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 currently doing well post operative care slow diet advancement PT/OT discharge planning to SNU 07/20 transfer back to surgical floor continue levaquin and flagyl will need placement discussed with medication reviewed and continue to provide supportive care continue PT and diet as per surgeon 07/21/19 add toradol for pain add tylenol for fever continue levaquin and flagyl medication reviewed and continue to provide supportive care will need snu placement continue gentle ivf 07/22/19 cardiology recommendation appreciated, 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
--- NOTE | 2019-07-23 10:53 | PRG ---
DATE OF SERVICE: 07/23/2019 SUBJECTIVE: Mr. Vieira is doing better. No complaints. No chest pain or pressure. OBJECTIVE: VITAL SIGNS: His blood pressure is variable and most recently it was 140/68 and pulse 80. LUNGS: Clear. CARDIAC: Normal S1 and normal S2. ASSESSMENT: 1. Atrial arrhythmias, improved with amiodarone. 2. Hypertension. 3. History of gastrointestinal bleeding. PLAN: 1. Reduce amiodarone dose. 2. Okay to me to go back to surgical or medical floor. Job ID: [id number]
--- NOTE | 2019-07-23 18:07 | PRG ---
DATE OF SERVICE: 07/23/2019 SUBJECTIVE: Mr. Vieira remains hospitalized on the telemetry floor. He is postoperative day #6 from a laparoscopic left hemicolectomy for resection of a large splenic flexure malignancy. 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 He was moved to the telemetry floor secondary to atrial fibrillation with rapid ventricular response. He is examined today with his in the room. He has no acute complaints and he seems to be as alert as he ever has been and his seems to feel that he feels better. He has still been tolerating a full liquid diet apparently without vomiting. He has a James catheter in place and yesterday, there was output of 1600 mL. There is a rectal tube in place with a large volume of gas within the container, but apparently only 50 mL of stool that drained yesterday. OBJECTIVE: VITAL SIGNS: He is afebrile, pulse is 84 to 94, and blood pressure is 154/72. LUNGS: Clear to auscultation. ABDOMEN: Appears to be mildly to moderately distended with decreased bowel sounds. Incisions appear to be healing nicely; although, there is some mild drainage from the lateral aspect of his left upper quadrant incision. LABORATORY DATA: His white blood cell count remains elevated at 14.2, although, this is decreasing. His hemoglobin has dropped down to 7.5 from 8.4 two days ago. Platelet count is 380. Chemistry reveals normal electrolytes. Blood sugar slightly elevated at 137. Albumin is decreased at 1.9. ASSESSMENT: He appears to be stable after his surgery. It is difficult to tell because of the severity of his dementia. I will obtain imaging of his abdomen with a KUB for now. It is noted that Dr. Abreu obtained a CT scan of his abdomen yesterday. We will probably advance his diet since he has had no vomiting. Job ID: [id number]
[2019-07-23] MEDS: Donepezil HCl 10 MG TAB PO SCH (21:54)
[2019-07-23] MEDS: Atorvastatin Calcium 20 MG TAB PO SCH (21:54)
[2019-07-24] MEDS: metroNIDAZOLE 500 MG TAB PO SCH ×2 (00:12→12:53)
[2019-07-24] MEDS: Lactated Ringer's 1,000 ML IV SCH (00:12)
[2019-07-24 05:48] LABS: #Eosinphils 0.3 thou/uL (0.0-0.7); #Lymphocytes 1.1 thou/uL (1.20-3.40); #Monocytes 1.4 thou/uL (0.11-0.59); %Basophils 0.1 % (0.0-1.0); %Eosinophils 2.6 % (0.0-10.0); %Lymphocytes 9.1 % (21.0-51.0); %Monocytes 11.8 % (0.0-10.0); %Neutrophils 76.4 % (42.0-75.0); Hemoglobin 7.5 g/dL (14.0-18.0); Mean Corpuscular HGB CONC 32.3 g/dL (32.0-36.0); Mean Corpuscular Hemoglobin 28.6 pg (27.0-31.0); Mean Corpuscular Volume 88.5 fL (78.0-98.0); Mean Platelet Volume 7.6 fL (7.4-10.4); Platelet Count 443 thou/uL (130-400); Red Blood Cell (RBC) Count 2.64 mill/uL (4.70-6.10); White Blood Cell (WBC) Count 11.8 thou/uL (4.8-10.8)
--- NOTE | 2019-07-24 10:28 | PDOC.HOSPP ---
- Subjective Encounter Date: 07/24/19 Encounter Time: 08:20 Subjective: Patient seen and examined. No overnight events - Objective Vital Signs & Weight: Vital Signs (12 hours) Temp Pulse Resp BP Pulse Ox 07/24/19 08:00 97.8 F 86 14 175/84 H 95 07/24/19 04:26 97.6 F 86 18 169/76 H 100 07/23/19 23:20 97.5 F L 86 18 154/76 H 93 L Weight Weight 170 lb 1.6 oz Most Recent Monitor Data Heart Rate from ECG 97 NIBP 109/59 NIBP BP-Mean 75 Respiration from ECG 21 SpO2 97 I&O: 07/23/19 07/24/19 07/25/19 06:59 06:59 06:59 Intake Total 2360 590 Output Total 1700 825 Balance 660 -235 Result Diagrams: 07/24/19 05:25 07/23/19 04:39 Hospitalist ROS - Review of Systems ROS unobtainable: due to mental status - Medication Medications: Active Medications Generic Name Dose Route Start Last Admin Trade Name Freq PRN Reason Stop Dose Admin Hydrocodone Bitart/Acetaminophen 1 tab 07/18/19 15:30 07/22/19 12:00 [place] 7.5/325 PO 1 tab Q4H PRN Administration Moderate Pain (4-6) Albuterol/Ipratropium 3 ml 07/17/19 15:45 07/21/19 05:25 Duoneb NEB 3 ml Q4H PRN Administration Wheezing Amiodarone HCl 200 mg 07/23/19 15:00 07/23/19 21:54 Cordarone PO 200 mg TID GEORGETTE Administration Atorvastatin Calcium 20 mg 07/21/19 21:00 07/23/19 21:54 Lipitor PO 20 mg HS GEORGETTE Administration Donepezil HCl 10 mg 07/21/19 21:00 07/23/19 21:54 Aricept PO 10 mg HS GEORGETTE Administration Enoxaparin Sodium 40 mg 07/23/19 09:00 07/23/19 10:10 Lovenox SC 40 mg 0900 GEORGETTE Administration Hydralazine HCl 10 mg 07/17/19 15:45 07/20/19 22:34 Apresoline SLOW IVP 10 mg Q4H PRN Administration SBP > 170 or DBP > 100 Lactated Ringer's 1,000 mls @ 50 mls/hr 07/20/19 16:45 07/24/19 00:12 Lactated Ringer's IV 1,000 mls .Q20H GEORGETTE Administration Levofloxacin 500 mg 07/23/19 13:00 07/23/19 14:00 Levaquin PO 500 mg 1300 GEORGETTE Administration Metronidazole 500 mg 07/22/19 16:00 07/24/19 00:12 Flagyl PO 500 mg 0800,1600,2359 GEORGETTE Administration Morphine Sulfate 2 mg 07/17/19 15:45 07/20/19 03:57 Morphine SLOW IVP 2 mg Q2H PRN Administration Mild Pain (1-3) Ondansetron HCl 4 mg 07/17/19 15:45 07/24/19 08:14 Zofran IVP 4 mg Q6H PRN Administration Nausea/Vomiting Pantoprazole Sodium 40 mg 07/21/19 09:00 07/23/19 10:04 Protonix PO 40 mg DAILY GEORGETTE Administration Sodium Chloride 10 ml 07/13/19 05:26 07/13/19 21:05 Normal Saline Pf FS 10 ml PRN PRN Administration RECONSTITUTION Sodium Chloride 10 ml 07/14/19 10:32 07/22/19 09:09 Flush - Normal Saline IVF 10 ml PRN PRN Administration Saline Flush - Exam General Appearance: NAD, awake alert Eye: PERRL, anicteric sclera ENT: normocephalic atraumatic, no oropharyngeal lesions Neck: supple, symmetric, no JVD Heart: RRR, no murmur, no gallops Respiratory: CTAB, no wheezes, no rales Gastrointestinal: soft, non-distended, normal bowel sounds Extremities: no clubbing, no edema Skin: normal turgor, no lesions Neurological: no focal deficits Musculoskeletal: normal tone, normal strength Psychiatric: normal affect, normal behavior, not oriented Hosp A/P (1) GI bleeding Code(s): K92.2 - GASTROINTESTINAL HEMORRHAGE, UNSPECIFIED Status: Acute Qualifiers: GI bleed type/associated pathology: anorectal hemorrhage Qualified Code(s) : K62.5 - Hemorrhage of anus and rectum (2) Acute blood loss anemia Code(s): D62 - ACUTE POSTHEMORRHAGIC ANEMIA Status: Acute (3) Colon cancer Code(s): C18.9 - MALIGNANT NEOPLASM OF COLON, UNSPECIFIED Status: Acute Qualifiers: Colon location: unspecified part of colon Qualified Code(s): C18.9 - Malignant neoplasm of colon, unspecified (4) Status post left hemicolectomy Code(s): Z90.49 - ACQUIRED ABSENCE OF OTHER SPECIFIED PARTS OF DIGESTIVE TRACT Status: Acute (5) Hypotension Status: Resolved (6) Dementia Code(s): F03.90 - UNSPECIFIED DEMENTIA WITHOUT BEHAVIORAL DISTURBANCE Status: Chronic Qualifiers: Dementia type: unspecified type Dementia behavioral disturbance: without behavioral disturbance Qualified Code(s): F03.90 - Unspecified dementia without behavioral disturbance (7) Atelectasis of both lungs Code(s): J98.11 - ATELECTASIS Status: Acute (8) Hiatal hernia Code(s): K44.9 - DIAPHRAGMATIC HERNIA WITHOUT OBSTRUCTION OR GANGRENE Status: Acute (9) Pneumonia Code(s): J18.9 - PNEUMONIA, UNSPECIFIED ORGANISM Status: Suspected (10) Delirium Code(s): R41.0 - DISORIENTATION, UNSPECIFIED Status: Acute (11) Ileus, postoperative Code(s): K91.89 - OTH POSTPROCEDURAL COMPLICATIONS AND DISORDERS OF DGSTV SYS; K56.7 - ILEUS, UNSPECIFIED Status: Acute (12) Atrial fibrillation with RVR Code(s): I48.91 - UNSPECIFIED ATRIAL FIBRILLATION Status: Acute - Plan old records reviewed/req, continue antibiotics, PT/OT, hospital social worker 07/19/19 currently doing well post operative care slow diet advancement PT/OT discharge planning to SNU 07/20 transfer back to surgical floor continue levaquin and flagyl will need placement discussed with medication reviewed and continue to provide supportive care continue PT and diet as per surgeon 07/21/19 add toradol for pain add tylenol for fever continue levaquin and flagyl medication reviewed and continue to provide supportive care will need snu placement continue gentle ivf 07/22/19 cardiology recommendation appreciated, on po amiodaron not a candidate for halfway chronic anticoagulation due to fall risk will get xray kub medication reviewed as above and continue to provide supportive care 07/23/19 continue levaquin and flagyl PO await placement surgery following discharge based on surgeon recommendation 07/24/19 today pt had small bowel follow through will wait for surgeon recommendation regarding his discharge high risk for readmission DC rectal tube DC holt catheter and monitor voiding continue current antibiotics for now medication reviewed as above and continue to provide supportive care await placement
--- NOTE | 2019-07-24 10:33 | RAD ---
EXAM: Small bowel follow-through HISTORY: Small bowel obstruction COMPARISON: None FINDINGS: A Gastrografin small bowel follow-through was performed. The small bowel loops are normal i n caliber without distention. Contrast passes through the small bowel loops to the colon by 30 minutes. The contrast is seen in the rectum at one hour. IMPRESSION: No evidence of complete bowel obstruction
[2019-07-24] MEDS ORDERED: MD-Gastroview 120 ML BOT ONE (11:10)
--- NOTE | 2019-07-24 11:36 | PRG ---
DATE OF SERVICE: 07/24/2019 SUBJECTIVE: Mr. Vieira remains hospitalized. Today, he is on the surgical floor. 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 He has been on the telemetry floor twice for issues related to tachycardia and arrhythmia. He was moved back to the surgical floor sometime today. Secondary to his dementia, it has been difficult to assess issues related to discomfort and tolerance of oral intake and bowel function. So today, I obtained a Gastrografin small-bowel follow-through. This showed rapid transit through the small bowel. The contrast could be seen traversing the entire colon as well by an hour and a half. He has already had several bowel movements indicating good passage of contrast and normal bowel function. The patient, as usual, has no complaints. OBJECTIVE: VITAL SIGNS: He is afebrile, temperature is 97.8, pulse is 86, and blood pressure 175/84. LUNGS: Clear to auscultation. ABDOMEN: Soft, nontender, and nondistended. There is a scant amount of drainage from the lateral aspect of his left upper quadrant incision. When I pushed on this, I cannot elicit any purulence or significant drainage, but did not really any erythema around this. The bowel sounds are present and normoactive. LABORATORY DATA: His white blood cell count has improved, yesterday was 14.2, today it is 11.8. Chemistries were not checked today. ASSESSMENT: The patient appears to continue to stabilize in regard to his surgery. He remains on Lovenox and I suspect this has something to do with why his current hemoglobin is 7.5. It is stable at that level from yesterday. I will start him on iron supplementation and advance him up to a regular diet. I have discontinued his IV fluids as well as necessary medications. For right now, I would continue him on Levaquin since he does have some drainage from his abdominal incision. He should be stable for transfer to a longterm facility anytime within the next day or so per [facility] Hospitalist. Job ID: [id number]
[2019-07-24] MEDS: Amiodarone 200 MG TAB PO SCH ×2 (12:52→16:40)
[2019-07-24 14:00] VITALS: BMI 27.4
--- NOTE | 2019-07-24 14:16 | DIS ---
DATE OF ADMISSION: 07/13/2019 DATE OF DISCHARGE: 07/24/2019 PRIMARY CARE PHYSICIAN: Dr. Henry Moyer. DISCHARGE DISPOSITION: long term home. PRIMARY DISCHARGE DIAGNOSES: 1. Lower gastrointestinal bleed. 2. Anemia due to acute blood loss. 3. Colon mass. 4. Status post left hemicolectomy. 5. Postoperative ileus. 6. Postoperative delirium. 7. Atrial fibrillation with rapid ventricular response. SECONDARY DISCHARGE DIAGNOSES: Alzheimer dementia, physical deconditioning, hiatal hernia. PRIMARY PROCEDURE AND OPERATION: Colonoscopy, laparoscopic left hemicolectomy. RADIOLOGICAL INVESTIGATION: Gastrointestinal bleeding scan nuclear medicine, abdomen and pelvis CT scan, chest x-ray, and small bowel x-ray. SIGNIFICANT LABORATORY DATA: WBC 11.8, hemoglobin 7.5, and platelets 443. INR 1.3. Creatinine 0.81. Urinalysis normal. Blood culture negative. C diff negative. DISCHARGE MEDICATIONS: 1. Aricept 10 mg p.o. at bedtime. 2. Prinzide 20/25 one tablet daily. 3. Protonix 40 mg daily. 4. Zocor 40 mg p.o. at bedtime. 5. Amiodarone 200 mg p.o. t.i.d. 6. Vitamin B12 of 1000 mcg p.o. daily. 7. Ferrous sulfate 325 mg p.o. daily. 8. Folic acid 1 mg daily. 9. Levaquin 500 mg p.o. daily. 10. Flagyl 500 mg p.o. t.i.d. 11. MiraLAX 17 g p.o. daily. CONTRAINDICATION: None. CODE STATUS: DNR. INPATIENT ROUTE CARRIER: 1. Dr. Leavitt was consulted for GI bleed, who did colonoscopy. 2. Dr. Flaherty was consulted for colon mass, who did a surgery. 3. Dr. Howell was consulted for atrial fibrillation. TEST RESULTS PENDING ON DISCHARGE: None. ALLERGIES: AMOXICILLIN, PENICILLIN, AND SULFA. DISCHARGE PLAN: Posthospital, the patient will follow up with primary care physician in [address] Flaherty in 1 to 2 weeks. HOSPITAL COURSE: This is an 84-year-old male, who has underlying advanced dementia, who was admitted by Dr. Sandoval on July 13, 2019, please see his H and P for further details. This patient had lower GI bleed and the patient had acute blood loss anemia. The patient required a total of 4 units of blood transfusion. He had hypotension because of blood loss that was improved with transfusion. Escapement Maker did colonoscopy and the patient was found with a colon mass in the left colon, which was suspected for cancer. The patient also had nuclear medicine RBC tagged scan, which was negative for any further bleeding. 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 The patient also underwent laparoscopic hemicolectomy by Dr. Flaherty. Postoperatively, the patient had postoperative ileus, which was resolved with time. The patient was started on liquid diet and advanced diet to regular diet without any problem. The patient also had a CT of abdomen and pelvis and small bowel follow-through which was negative for any leak. While in hospital, the patient also had a delirium and he required a transfer to telemetry floor for atrial fibrillation. He was treated with amiodarone. This patient is not a candidate for chronic anticoagulation. The patient has significant physical deconditioning and that is why with help of case making machine operator, we arranged a [facility] home. Paperwork for discharge done. Discharge medications reconciliation done. The patient is at high risk for recurrent admission. Job ID: [id number]
[2019-07-24] MEDS ORDERED: Enoxaparin Sodium 40 MG/0.4 ML SYRINGE ONE (16:43)
[2019-07-24] MEDS: Enoxaparin Sodium 40 MG/0.4 ML SYRINGE SC SCH (16:44)
[2019-07-24 16:55] VITALS: BP 139/76; TEMP 97.4
[2019-07-24] MEDS ORDERED: Ferrous Sulfate 325 MG TAB PO SCH (17:00)
--- NOTE | 2019-07-25 08:15 | PQF ---
SHAVONNE MOREIRA SALIM NOORJIBHAI MD [id number] [place] [id number] CLINICAL DOCUMENTATION CLARIFICATION FORM: POST DISCHARGE Addendum to original discharge summary date: ____ Late entry note date: __ DATE: 07/25/2019 ATTN: NARA HENNING MD Please exercise your independent, professional judgment in responding to the clarification form. Clinical indicators are provided on the bottom of this form for your review Please check appropriate box(s) to clarify if the following diagnosis has been ruled in or ruled out: Pneumonia [ xx ] Ruled in diagnosis [ x ] Continue to treat [ ] Resolved [ ] Ruled out diagnosis [ ] Cannot rule out diagnosis [ ] Other diagnosis [ ] Unable to determine For continuity of documentation, please document condition throughout progress notes and discharge summary. Thank You. CLINICAL INDICATORS - SIGNS / SYMPTOMS / LABS - Pneumonia, status: suspected- Hospital PN, 07/24, NARA HENNING MD - Atelectasis of both lungs, Acute- Hospital PN, 07/24, NARA HENNING MD - There is mild pulmonary vascular congestion-Chest X ray, 07/20, Isabella Nails MD - patchy opacity in medial left lung base and obscuration of the left hemidiaphram is again seen- Chest X ray, 07/20, Isabella Nails MD - WBC: 11.8H on 07/24, 22.3H on 07/19- Laboratory report RISK FACTORS -s/p Left hemicolectomy-Hospital PN, 07/24, NARA HENNING MD -Atrial fibrillation with RVR- DS, 07/24MILADY SALIM NOORJIBHAI MD TREATMENTS - Levofloxacin.IV- 05/20 (This form is maintained as a part of the permanent medical record) 2014 [employer], [employer]. All Rights Reserved [employer]h [employer] [not provided] [not provided] PRACHI
== END 2019-07-24 16:51 | DRG 329 ==
LOC: ERS 23:44 → CCU 07-13 03:05 → T4-B 07-14 17:55 → SURG A 07-17 18:45 → 2NO 07-20 04:35 → SURG A 07-20 14:44 → 2NO 07-21 14:22 → SURG A 07-23 23:35
PROVIDERS: ADMIT Family Medicine; ATTEND Family Medicine
PROC: 0DJ08ZZ Inspection of Upper Intestinal Tract, Via Natural or Artificial Opening Endoscopic (ICD-10-PCS; principal; 2019-07-15)
PROC: 0DBE8ZX Excision of Large Intestine, Via Natural or Artificial Opening Endoscopic, Diagnostic (ICD-10-PCS; 2019-07-15)
PROC: 0DTG4ZZ Resection of Left Large Intestine, Percutaneous Endoscopic Approach (ICD-10-PCS; 2019-07-17)
DX: C18.9 Malignant neoplasm of colon, unspecified (principal); J18.9 Pneumonia, unspecified organism; K92.2 Gastrointestinal hemorrhage, unspecified; D62 Acute posthemorrhagic anemia; K56.7 Ileus, unspecified; I69.354 Hemiplegia and hemiparesis following cerebral infarction affecting left non-dominant side; K63.3 Ulcer of intestine; J98.11 Atelectasis; K62.5 Hemorrhage of anus and rectum; R41.0 Disorientation, unspecified; Z66 Do not resuscitate; G30.9 Alzheimer's disease, unspecified; K44.9 Diaphragmatic hernia without obstruction or gangrene; I95.9 Hypotension, unspecified; N40.0 Benign prostatic hyperplasia without lower urinary tract symptoms; M10.9 Gout, unspecified; I48.0 Paroxysmal atrial fibrillation; K21.9 Gastro-esophageal reflux disease without esophagitis; M19.90 Unspecified osteoarthritis, unspecified site; E78.5 Hyperlipidemia, unspecified; F41.9 Anxiety disorder, unspecified; K63.5 Polyp of colon; F02.80 Dementia in other diseases classified elsewhere, unspecified severity, without behavioral disturbance, psychotic disturbance, mood disturbance, and anxiety; Z79.01 Long term (current) use of anticoagulants; Z88.1 Allergy status to other antibiotic agents; Z88.0 Allergy status to penicillin; Z88.2 Allergy status to sulfonamides; Z98.49 Cataract extraction status, unspecified eye
CPT/HCPCS: 36415; 36430; 51702; 71045; 74018; 74176; 74177; 74250; 78278; 80048; 80053; 81001; 82378; 83605; 83690; 83735; 85007; 85025; 85027; 85060; 85610; 85730; 86850; 86900; 86901; 87040; 87324; 87449; 88305; 88309; 88313; 88361; 93005; 93010; 94640; 96360; 96361; A9604; C9113; J0131; J0360; J0670; J0694; J0744; J1100; J1650; J1885; J1956; J2001; J2270; J2405; J2704; J3010; J3490; J7620; P9016; Q9963; S0028